=== PATIENT | female | born 1950 | race Caucasian/White ===

== ENCOUNTER 2020-03-20 18:09 | Emergency (ER) | payer MEDICARE, OTHER, SELFPAY ==
--- NOTE | ~2020-03-20 | XR_ITS ---
EXAMINATION: XR abdomen/kub 1V EXAM DATE: 03/20/2020 20:26 INDICATION: Right mid ureteral stone. Bilateral nephrolithiasis. TECHNIQUE: Frontal projection(s) of the abdomen for interpretation. Correlation is made to abdomen pe lvis CT same date. FINDINGS: Right mid ureteral stone is identified, indicated. There are 2 large left kidney stones al so well-visualized. Stool overlies the right renal contour but possible identification of a single sm all right nephrolithiasis. Moderate amount of colonic stool and gas. Nonobstructive bowel gas pattern . Lung bases unremarkable. IMPRESSION: Right mid ureteral stone, nephrolithiasis identified. Reviewed, dictated and finalized at location A.
--- NOTE | ~2020-03-20 | CT_ITS ---
EXAMINATION: CT abdomen pelvis wo con EXAM DATE: 03/20/2020 20:16 INDICATION: Right-sided abdominal pain radiating to right flank. Nausea. TECHNIQUE: Spiral CT of the abdomen and pelvis was performed without contrast. Axial, coronal and sag ittal images were reviewed. The dose-length product (DLP) for this examination was 1271.77 mGy-cm. The exposure was tailored according to patient size (auto mA exposure control), and iterative reconst ruction (ASIR) was used as additional dose reduction technique. Comparison is made to prior examinati on from 04/18/2019. FINDINGS: There is a 10 mm right mid ureteral stone with moderate right-sided hydroureteronephrosis. Several additional punctate right calyceal stones. There are 2 large left renal stones, measuring up to 1.3 cm, and several punctate left stones as well which are nonobstructing. The uterus is not iden tified and has likely been surgically resected. The bladder is unremarkable. The liver, spleen, adr enal glands and pancreas are unremarkable. The gallbladder is distended but otherwise unremarkable. There is no biliary duct dilation. There is no retroperitoneal or pelvic lymphadenopathy. The appendix is normal. There is moderate-sized gastroesophageal hiatal hernia. There is mild scatte red colonic diverticulosis. There is no adjacent inflammatory change to suggest diverticulitis. No free intraperitoneal gas. The heart is normal in size. There are no pericardial or pleural effusio ns. The lung bases are unremarkable. There are no osteoblastic or osteolytic lesions identified. IMPRESSION: 1. Right mid ureteral 10 mm stone, moderate hydroureteronephrosis. 2. Bilateral nephrolithiasis, largest on the left. 3. Moderate gastroesophageal hiatal hernia. 4. Mild colonic diverticulosis. Reviewed, dictated and finalized at location A.
[2020-03-20 18:28] VITALS: BP 172/86; PULSE 80; RESP 20; TEMP 37.4; O2SAT 98
[2020-03-20 18:47] LABS: Basophils Percent Auto 0.3 % (0.2-1.2); Eosinophils Percent Auto 0.2 % (0-4.4); Hematocrit 39.9 % (37.0-47.0); Immature Granulocyte Absolute 0.04 K/mm3 (0.00-0.031); Immature Granulocyte Percent A 0.4 % (0-0.5); Lymphocytes Absolute Auto 2.43 K/mm3 (0.9-3.2); Mean Corpuscular HGB Conc 32.6 g/dl (32-36); Mean Corpuscular Hemoglobin 29.5 pg (26-34); Mean Corpuscular Volume 90.7 fl (80-100); Mean Platelet Volume 11.6 fl (7.4-10.4); Monocytes Absolute Auto 0.6 K/mm3 (0.1-0.6); Monocytes Percent Auto 5.7 % (2.6-8.5); Neutrophils Absolute Auto 7.5 K/mm3 (1.3-6.7); Neutrophils Percent Auto 70.4 % (45.5-73.1); Platelet Count Result 210 k/mm3 (150-375); Red Cell Distribution Width 13.4 % (11.5-14.5); White Blood Count 10.6 K/mm3 (4.5-10.0)
[2020-03-20 18:51] LABS: Add Urine Microscopic? YES; Appearance Urine Clear (Clear); Bacteria Urine Trace /hpf; Bilirubin Urine Negative (Negative); Blood Urine 3+ (Negative); Color Urine Yellow (Yellow); Glucose Urine UA Negative (Negative); Ketones Urine Negative (Negative); Leukocyte Esterase Ur 2+ LEU/UL (Negative); Mucus Urine Rare /lpf; Nitrate Urine Negative (Negative); Protein Urine 1+ mg/dL (Negative); RBC Urine 51-75 /hpf (0-2); Specific Grav Ur 1.021 (1.001-1.035); Squamous Epithelial Cell Urine Occasional /hpf (Few); WBC Urine 21-30 /hpf
[2020-03-20 18:58] LABS: Alanine Aminotransferase 14 U/L (4-35); Albumin Level 4.8 g/dL (3.5-5.1); Alkaline Phosphatase 77 U/L (38-126); Aspartate Amino Transferase 25 U/L (14-36); Bilirubin,Total 0.5 mg/dL (0.2-1.3); Blood Urea Nitrogen 22 mg/dL (7-17); Calcium 10.1 mg/dL (8.4-10.2); Carbon Dioxide 22 mmol/L (22-30); Chloride 108 mmol/L (98-107); Estimated CRCL calculation 43 ml/min; Estimated Glomerular Filt Rate 37; Glucose 126 mg/dL (65-105); Lipase 123 U/L (23-300); Potassium 4.1 mmol/L (3.4-5.0); Sodium 140 mmol/L (137-145)
--- NOTE | 2020-03-20 19:43 | ED.ABDPAIN ---
HPI - Abdominal Pain General Chief Complaint: Abdominal Pain <Cedrick Casanova PA-C - Last Filed: 03/20/20 20:58> Stated Complaint: RLQ ABD PAIN <EDITA Anderson Last Filed: 03/20/20 20:58> Time Seen by Provider: 03/20/20 19:17 <EDITA Anderson Last Filed: 03/20/20 20:58> Source: patient <EDITA Anderson Last Filed: 03/20/20 20:58> Mode of arrival: ambulatory <Cedrick Casanova PA-C - Last Filed: 03/20/20 20:58> Limitations: no limitations <Cedrick Casanova PA-C - Last Filed: 03/20/20 20:58> History of Present Illness HPI narrative: Patient is a 70-year-old female who presents to emergency department for evaluation of right lower quadrant pain flank pain that began today around noon described as a constant aching pain attempted [id number] medications with no improvement patient on arrival is in no distress notes that she did have some dry heaving patient denies any change in bowel habits fever or chills or other complaints and is otherwise resting comfortably on arrival is noted patient denies similar occurrence in the past has not been seen for this complaint <Cedrick Casanova PA-C - Last Filed: 03/20/20 20:58> Related Data Allergies/Adverse Reactions: Allergies Allergy/AdvReac Type Severity Reaction Status Date / Time No Known Allergies Allergy Verified 06/08/14 10:54 <EDITA Anderson Last Filed: 03/20/20 20:58> Review of Systems Review of Systems: All systems reviewed & are unremarkable except as noted in HPI and below <Cedrick Casanova PA-C - Last Filed: 03/20/20 20:58> [facility] Past Medical History Medical History: Medical History (Updated 03/20/20 @ 20:34 by Mayela Montaño MD) Hyperlipidemia Obesity <EDITA Anderson Last Filed: 03/20/20 20:58> Surgical History Surgical History: Surgical History H/O: hysterectomy <EDITA Anderson Last Filed: 03/20/20 20:58> Family History Family History: Family History (Updated 05/09/16 @ 23:19 by DOCTOR UNKNOWN) Grandparent Family history of malignant neoplasm of breast Sibling Family history of obesity Hypertension Family history of alcoholism Mother Family history of cataracts <Cedrick Casanova PA-C - Last Filed: 03/20/20 20:58> Social History Social History: Social History Smoking status: Never smoker Second hand tobacco smoke exposure: No Alcohol intake: never <Cedrick Casanova PA-C - Last Filed: 03/20/20 20:58> Exam Narrative: Exam Narrative: GENERAL: Well-appearing, obese, and in no acute distress. HEAD: Normocephalic, atraumatic. EYES: PERRLA and EOMI. ENT: Nares clear, no rhinorrhea or epistaxis. Mucous membranes moist. CHEST: Clear to auscultation. No respiratory distress. No wheezes rales or rhonchi HEART: Regular rate and rhythm. No murmur heard. Normal peripheral pulses. ABDOMEN: Soft, right lower quadrant tenderness to palpation, nondistended EXTREMITIES: Normal range of motion. No edema. SKIN: Warm, dry, no rash. NEURO: No focal deficits. Alert and oriented x3. Cranial nerves II through XII grossly intact PSYCH: Normal mood and affect. <Cedrick Casanova PA-C - Last Filed: 03/20/20 20:58> Course Course Emergency Course: Patient in the room in no distress aware of case findings treatment plan and diagnosis agreeing to follow-up as directed aware of recommendations with urology <Cedrick Casanova PA-C - Last Filed: 03/20/20 20:58> Consultations Consultation #1: Discussed case with urologist who will follow patient by phone tomorrow to set up for lithotripsy <Cedrick Casanova PA-C - Last Filed: 03/20/20 20:58> Date: 03/20/20 <Cedrick Casanova PA-C - Last Filed: 03/20/20 20:58> Time: 20:57 <EDITA Anderson Last Filed: 03/20/20 20:58> Vital S
[2020-03-20 19:44] VITALS: BP 157/88; PULSE 63; RESP 20; O2SAT 99
[2020-03-20] MEDS: FAMOTIDINE 20 MG/2 ML VIAL IV PUSH (19:48)
[2020-03-20] MEDS: ONDANSETRON INJ 4 MG/2 ML VIAL IV PUSH (19:49)
[2020-03-20 21:50] VITALS: BP 136/75; PULSE 62; RESP 16; O2SAT 99
== END 2020-03-20 21:35 | disposition home or self-care (01) ==
PROVIDERS: Emergency Medicine; Emergency Provider Emergency Medicine; PCP Family Medicine
DX: N13.2 Hydronephrosis with renal and ureteral calculous obstruction (principal); E78.5 Hyperlipidemia, unspecified; E66.9 Obesity, unspecified; Z68.38 Body mass index [BMI] 38.0-38.9, adult; K44.9 Diaphragmatic hernia without obstruction or gangrene; K57.90 Diverticulosis of intestine, part unspecified, without perforation or abscess without bleeding
CPT/HCPCS: 36415; 74018; 74176; 80053; 81001; 81025; 83690; 85025; 87086; 87088; 96365; 96375; 99284; J0131; J0696; J2405

== ENCOUNTER 2020-04-24 09:26 | Outpatient (CLI) | payer MEDICARE, OTHER, SELFPAY ==
--- NOTE | ~2020-04-24 | XR_ITS ---
XR abdomen/kub 1V 04/24/2020 09:52 Indication: Right ureteral stone. Procedure: KUB Comparison: 03/20/2020 Findings: Stable large left renal stones. No definite ureteral stone identified on current study. Non obstructive bowel gas pattern. No acute osseous abnormality. Impression: 1: Left nephrolithiasis. Reviewed, dictated and finalized at location B. Impression: 1: Left nephrolithiasis.
== END 2020-04-24 09:27 | disposition home or self-care (01) ==
LOC: ANHIMG 09:33
PROVIDERS: PCP Family Medicine; Visit Provider Urology
DX: N20.0 Calculus of kidney (principal)
CPT/HCPCS: 74018

== ENCOUNTER 2020-05-10 06:49 | Outpatient (CLI) | payer MEDICARE, OTHER, SELFPAY ==
[2020-05-10 08:01] LABS: Alanine Aminotransferase 16 U/L (4-35); Albumin Level 4.6 g/dL (3.5-5.1); Alkaline Phosphatase 64 U/L (38-126); Aspartate Amino Transferase 26 U/L (14-36); Bilirubin,Total 0.7 mg/dL (0.2-1.3); Blood Urea Nitrogen 21 mg/dL (7-17); Calcium 9.3 mg/dL (8.4-10.2); Carbon Dioxide 25 mmol/L (22-30); Chloride 105 mmol/L (98-107); Cholesterol 124 mg/dL (0-200); Estimated Glomerular Filt Rate > 60; Glucose 98 mg/dL (65-105); HDL Direct 48 mg/dL; Sodium 139 mmol/L (137-145); Triglycerides 96 mg/dL (<150)
[2020-05-10 08:11] LABS: LDL Cholesterol Direct 53 mg/dL
[2020-05-10 09:10] LABS: Free T4 Free Thyroxine 1.28 ng/mL (0.78-2.19)
== END 2020-05-10 06:50 | disposition home or self-care (01) ==
LOC: ANHLAB 06:52
PROVIDERS: PCP Family Medicine; Visit Provider Physician Assistant
DX: E05.90 Thyrotoxicosis, unspecified without thyrotoxic crisis or storm (principal); E78.5 Hyperlipidemia, unspecified
CPT/HCPCS: 36415; 80053; 80061; 84439; 84443

== ENCOUNTER 2020-08-23 13:45 | Outpatient (CLI) | payer MEDICARE, OTHER, SELFPAY ==
--- NOTE | ~2020-08-23 | US_ITS ---
EXAMINATION: US venous doppler LE RT EXAM DATE: 08/23/2020 14:30 INDICATION: Z86.718 - Personal history of other venous thrombosis and embolism CALF PAIN . TECHNIQUE: Multiple grayscale, color flow and Doppler images of the right lower extremity deep venous system were obtained and reviewed. Comparison is made to prior examination from 12/12/2014. FINDINGS: There is linear defect consistent with web/scarring extending longitudinally along the femo ral vein causing partial noncompressibility. Appearance is consistent with chronic sequela from prior DVT, and appears unchanged compared to 2015 study. Previously seen popliteal and peroneal veins have reconstituted fully. The right common femoral and profunda veins demonstrate normal color flow, respiratory variation, aug mentation and compressibility. Compressibility, color flow confirmed within the right popliteal, pos terior tibial, peroneal, and greater saphenous veins. IMPRESSION: 1. Chronic right femoral web/scarring. 2. No treatable DVT suspected. 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
== END 2020-08-23 13:46 | disposition home or self-care (01) ==
PROVIDERS: PCP Family Medicine; Visit Provider Physician Assistant
DX: M79.661 Pain in right lower leg (principal); Z86.718 Personal history of other venous thrombosis and embolism
CPT/HCPCS: 93971

== ENCOUNTER → 2020-10-31 15:36 | Outpatient (CLI) | payer MEDICARE, OTHER, SELFPAY ==
--- NOTE | ~2020-10-31 | XR_ITS ---
EXAMINATION: XR knee RT 2V DATE: 10/31/2020 15:46 INDICATION: Right knee pain. TECHNIQUE: 2 views of right knee were obtained. COMPARISON: Right knee radiographs 12/01/2017 FINDINGS: Bone alignment is normal. No fracture. There is mild osteoarthritis of medial and patellofe moral compartments and moderate osteoarthritis of lateral compartment. There is a small knee joint ef fusion. IMPRESSION: 1. Moderate right knee osteoarthritis. 2. Small right knee joint effusion. Reviewed, dictated and finalized at location B. 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
== END ==
PROVIDERS: PCP Family Medicine; Visit Provider Nurse Practitioner Adult Health
DX: M17.11 Unilateral primary osteoarthritis, right knee (principal); M25.461 Effusion, right knee
CPT/HCPCS: 73560

== ENCOUNTER → 2020-11-02 11:53 | Outpatient (CLI) | payer MEDICARE, OTHER, SELFPAY ==
--- NOTE | ~2020-11-02 | MR_ITS ---
EXAMINATION: MR knee RT wo con DATE: 11/02/2020 12:29 INDICATION: Right knee pain TECHNIQUE: Magnetic resonance imaging (MRI) of the right knee was performed without intravenous contr ast. Sequences included coronal PD-weighted FSE, coronal PD-weighted FS FSE, sagittal T2-weighted FS E, sagittal PD-weighted FS FSE and axial PD weighted fat saturated FSE. COMPARISON: None. FINDINGS: Medial compartment: Complex tear of the body and posterior horn of the medial meniscus which includes both a . Peak confi guration tear at the posterior horn and the longitudinal horizontal tear extending to the inferior ar ticular surface of both the body and posterior horn. There is partial thickness cartilage loss along the medial tibial plateau with relatively smooth chondral surface and without degenerative subchondra l changes. More irregular partial-thickness chondral ulceration along the anterior weightbearing medi al femoral condyle also without degenerative subchondral changes. Lateral compartment: Complex tear likely secondary degeneration of the body of the lateral meniscus which demonstrates a s omewhat globular morphology with more amorphous increased signal contacting extensive portions of the cephalad and caudal articular surfaces. Partial-thickness cartilage loss at the lateral tibial plate au which appears to involve greater than 50% the cartilage thickness centrally but with smooth chondr al surface. Additional partial thickness cartilage loss of greater than 50% thickness with smooth sophie face at the central weightbearing lateral femoral condyle. Patellofemoral compartment: Extensive partial thickness cartilage loss throughout the patella with chondral surface regularity. F ocal full thickness chondral ulceration with cortical irregularity and subarticular edema at the supe romedial aspect of the lateral facet near the apical ridge. Partial-thickness chondral ulceration kamaljit ng the inferior aspect of the medial trochlea. Ligaments and tendons: Anterior and posterior cruciate ligaments are normal. The medial collateral ligament and fibular marisa ateral ligament complex are normal. The extensor mechanism is normal. The visualized medial and later al hamstring tendons as well as the iliotibial band are normal. Fluid: Minimal right knee joint effusion at the lateral gutter of the suprapatellar pouch. No loose osteocho ndral bodies identified. Osseous/other: Normal marrow signal aside from the previous noted foci of degenerative subarticular edema. No fractu re or pathologic marrow replacing process. There is prominent fatty atrophy of the soleus muscle and medial head of the gastrocnemius muscle. IMPRESSION: 1. Complex medial and lateral meniscal tears. Line 2. Mild tricompartmental osteoarthritis with high-grade patellofemoral and moderate grade medial and lateral compartment chondromalacia. 3. Fatty atrophy of the soleus muscle and medial head of the gastrocnemius muscle which is of indeter minate etiology. Reviewed, dictated and finalized at location A. 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 Complex medial and lateral meniscal tears. Line 2. Mild tricompartmental osteoarthritis with high-grade patellofemoral and mode rate grade medial and lateral compartment chondromalacia. 3. Fatty atrophy of the soleus muscle and medial head of the gastrocnemius musc le which is of indeterminate etiology.
== END ==
PROVIDERS: Visit Provider Nurse Practitioner Adult Health
DX: M17.11 Unilateral primary osteoarthritis, right knee (principal); S83.231A Complex tear of medial meniscus, current injury, right knee, initial encounter; S83.271A Complex tear of lateral meniscus, current injury, right knee, initial encounter; X58.XXXA Exposure to other specified factors, initial encounter
CPT/HCPCS: 73721

== ENCOUNTER 2021-04-22 07:02 | Outpatient (CLI) | payer MEDICARE, SELFPAY ==
[2021-04-22 08:13] LABS: Alanine Aminotransferase 13 U/L (4-35); Albumin Level 4.3 g/dL (3.5-5.1); Alkaline Phosphatase 78 U/L (38-126); Anion Gap 8 mmol/L (8-16); Aspartate Amino Transferase 23 U/L (14-36); Bilirubin,Total 0.7 mg/dL (0.2-1.3); Blood Urea Nitrogen 18 mg/dL (7-17); Calcium 9.4 mg/dL (8.4-10.2); Carbon Dioxide 25 mmol/L (22-30); Chloride 109 mmol/L (98-107); Cholesterol 202 mg/dL (0-200); Estimated Glomerular Filt Rate 55; Glucose 99 mg/dL (65-105); HDL Direct 44 mg/dL; Potassium 4.1 mmol/L (3.4-5.0); Sodium 142 mmol/L (137-145); Triglycerides 136 mg/dL (<150)
[2021-04-22 08:24] LABS: LDL Cholesterol Direct 109 mg/dL
== END 2021-04-22 07:03 | disposition home or self-care (01) ==
PROVIDERS: PCP Family Medicine; Visit Provider Physician Assistant
DX: E78.5 Hyperlipidemia, unspecified (principal)
CPT/HCPCS: 36415; 80053; 80061

== ENCOUNTER 2021-06-14 03:22 | Day surgery (SDC) | payer MEDICARE, SELFPAY ==
[2021-06-14] VITALS (8 sets, daily range): BP systolic 112–156; BP diastolic 73–86; PULSE 67–73; RESP 14–20; TEMP 36.2–36.6; O2SAT 97–100; BMI 38.9
--- NOTE | ~2021-06-14 | XR_ITS ---
EXAMINATION: XR abdomen/kub 1V EXAM DATE: 06/14/2021 06:30 INDICATION: ESWL TECHNIQUE: Frontal projection of the upper abdomen, frontal projection lower abdomen/pelvis for inter pretation. Comparison is made to prior examination from 04/24/2020. FINDINGS: There is approximately 9 mm calcification projecting over the expected location of the lef t ureteropelvic junction, appears to have migrated from a superior calyx on prior study. There is drew roximately 1.5 cm calcification projecting over the lower pole of the left kidney. Nonobstructive bow el gas pattern. There are bony degenerative changes. IMPRESSION: Left UPJ, calyceal stones. Reviewed, dictated and finalized at location D. IMPRESSION: Left UPJ, calyceal stones.
--- NOTE | 2021-06-14 07:12 | P.PNAN_ITS ---
Anes - Initial Pre Proc Eval Procedure: Operation Date: 06/14/21 08:15 Proposed Procedures p Left Renal Extracorporeal Shock Wave Lithotripsy, possible stent placement(Left) - Ramon Leong MD Date/Time: 06/14/21 07:12 Surgeon: Ramon Leong MD Pre Op Diagnosis: kidney stone Patient Data Age: 71 Gender: F Height: Weight: Allergies Allergy/AdvReac Type Severity Reaction Status Date / Time No Known Allergies Allergy Verified 04/11/21 11:03 Home Medications Medication Instructions Recorded Confirmed Type acetaminophen 500 mg PO Q6H PRN #30 cap 03/20/20 06/14/21 Rx tramadol 50 mg PO PRN 06/14/21 06/14/21 History Patient hx anesthesia problems: none Family hx anesthesia problems: none PMFSH Past Medical History Medical History Hyperlipidemia Hyperthyroidism Obesity Surgical History Surgical History H/O: hysterectomy Family History Family History Grandparent Family history of malignant neoplasm of breast Sibling Family history of obesity Hypertension Family history of alcoholism Mother Family history of cataracts Social History Social History Second hand tobacco smoke exposure: No Alcohol intake: never Anes - Eval Final PreProcedure Day of Procedure 06/14/21 07:12 Patient weight: obese Heart: regular rate and rhythm Lungs: clear to auscultation and normal air movement Airway: Mallampati scale class II Neurological: alert and oriented Last oral intake: >/= 8 hours ASA classification: III Emergent: no Anesthetic plan: proceed Anesthesia type and monitoring: general LMA Informed Consent: The patient's anesthetic plan and its attendant risks and benefits were discussed with the patient/family/POA. Questions were solicited and answers provided to the satisfaction of the patient/family/POA.
[2021-06-14] MEDS: LACTATED RINGERS 1,000 ML 30 ML IV CONT ×2 (07:15→09:58)
[2021-06-14 07:46] LABS: Prothrombin Time 13.5 Seconds (11.1-14.7)
[2021-06-14 07:47] LABS: Partial Thromboplastin Time 24.2 SECONDS (22.3-36.8)
--- NOTE | 2021-06-14 07:57 | SUR.PREOP ---
0757 - u/a waved per dr. mittal. pt/ptt results noted
--- NOTE | 2021-06-14 08:18 | PM.IMHP ---
H&P: HPI History of Present Illness Date/Time: 06/14/21 08:18 Chief Complaint: 9 mm left UPJ calculus with hydronephrosis and renal colic Narrative: Pleasant 71-year-old female who presented with left renal colic and was found to have a 9 mm left UPJ calculus. She also has a 1.5 cm left lower pole stone. Patient presents today for cysto, left retrograde pyelogram, left ureteral stent placement with left ureteral ESWL Review of Systems Review of Systems: All systems reviewed & are unremarkable except as noted in HPI and below PMFSH Past Medical History Medical History Hyperlipidemia Hyperthyroidism Obesity Surgical History Surgical History H/O: hysterectomy Family History Family History Grandparent Family history of malignant neoplasm of breast Sibling Family history of obesity Hypertension Family history of alcoholism Mother Family history of cataracts Social History Social History Second hand tobacco smoke exposure: No Alcohol intake: never Meds Home Medications and Allergies Home Medications Medication Instructions Recorded Confirmed Type acetaminophen 500 mg PO Q6H PRN #30 cap 03/20/20 06/14/21 Rx tramadol 50 mg PO PRN 06/14/21 06/14/21 History Allergies Allergy/AdvReac Type Severity Reaction Status Date / Time No Known Allergies Allergy Verified 06/14/21 08:16 Vital Signs Vital Signs - 24 hr 06/14/21 07:16 Temperature 36.6 C Pulse Rate 72 Respiratory Rate 20 Blood Pressure 123/78 Pulse Oximetry 100 Exam Const: General: cooperative and uncomfortable HENMT: Head: normal to inspection Eyes: General: appearance normal, both eyes and all related structures Resp: Effort & Inspection: normal respiratory effort Cardio: Rate: regular rate Rhythm: regular rhythm : General: No CVA tenderness Back/Spine/Pelvis: Back: no CVA tenderness Assessment and Plan Assessment and plan (1) Obstruction of left ureteropelvic junction (UPJ) due to stone: Code(s): N20.1 - Calculus of ureter Status: Acute Assessment and Plan: Plan for cystoscopy, left retrograde pyelogram, left ureteral stent placement, ESWL left UPJ calculus
--- NOTE | 2021-06-14 08:21 | WPDHPUPDATE1 ---
History and Physical Update Update Date/Time: 06/14/21 08:21 History and Physical has been reviewed, including an updated exam of the patient. There are NO changes in the patient's condition. Risks, benefits, and alternatives have been discussed and questions answered. Patient agrees to proceed with procedure.
[2021-06-14] MEDS: ceFAZolin 2 GM/D5W 50 ML 2 GM/50 ML BAG IVPB (08:43)
--- NOTE | 2021-06-14 09:27 | W.PM.PROC2 ---
Procedure Note - Detailed Date of Procedure 06/14/21 Pre-op Diagnosis kidney stone Post-op Diagnosis same Procedure Performed Cystoscopy, left retrograde pyelogram, left ureteral stent placement 4.8 Slovenian contour, lithotripsy left UPJ calculus Surgeon Ramon Leong MD Anesthesia general Description of Procedure Patient is taken the operative suite correctly identified. Once anesthesia was obtained she was placed in a frog-leg position and prepped and draped usual sterile fashion. Flexible cystoscope was inserted into the urethra. There were no tumors noted. The left ureteral orifice was cannulated with a [place]. Pyelogram was performed to confirm placement of the stent in the renal pelvis. The stent was placed in left collecting system. A 4.8 Slovenian contour stent was then placed with the proximal end coiled in the renal pelvis and the distal end in the bladder. Patient was then repositioned. The stone was visualized in both planes. Two thousand five hundred shocks were given the stone. There appeared to good fragmentation. Patient is taken recovery stable condition. She will obtain a KUB in approximately 7-10 days. Drains Yes Packing No Pathology none sent Complications No immediate complications Condition stable Disposition PACU
== END 2021-06-14 11:05 | disposition home or self-care (01) ==
PROVIDERS: PCP Family Medicine; Visit Provider Urology
PROC: (CPT 50590; principal; 2021-06-14 08:15)
DX: N20.1 Calculus of ureter (principal); E78.5 Hyperlipidemia, unspecified; E05.90 Thyrotoxicosis, unspecified without thyrotoxic crisis or storm; E66.9 Obesity, unspecified; Z68.38 Body mass index [BMI] 38.0-38.9, adult
CPT/HCPCS: 52332; 50590; 36415; 74018; 85610; 85730; A9270; C1758; C1769; C2617; J0131; J0690; J1100; J2250; J2405; J2704; J3010; J7030; J7120; Q9966

== ENCOUNTER 2021-06-27 10:40 | Outpatient (CLI) | payer MEDICARE, SELFPAY ==
--- NOTE | ~2021-06-27 | XR_ITS ---
EXAMINATION: XR abdomen/kub 1V INDICATION: Ureterolithiasis TECHNIQUE: Supine views of the abdomen were obtained on 2 radiographs. COMPARISON: 06/14/2021 FINDINGS: A left internal ureteral stent has been placed which ends in expected position. A stone pre viously seen in the left renal pelvis is no longer identified. There are stone fragments projecting o dorie the sacrum adjacent to the internal ureteral stent which measure 6 mm and 7 mm. There is a stable 1.7 cm stone of the left kidney lower pole. The bowel gas pattern is normal. IMPRESSION: 1. Interval treatment of the previously described left renal pelvis stone with placement of a left in ternal ureteral stent in expected position and stone fragments adjacent to the midportion of the sten t. 2. Left nephrolithiasis. Reviewed, dictated and finalized at location A. IMPRESSION: 1. Interval treatment of the previously described left renal pelvis stone with placement of a left internal ureteral stent in expected position and stone frag ments adjacent to the midportion of the stent. 2. Left nephrolithiasis.
== END 2021-06-27 10:41 | disposition home or self-care (01) ==
LOC: ANHIMG 10:45
PROVIDERS: PCP Family Medicine; Visit Provider Nurse Practitioner Family
DX: N20.0 Calculus of kidney (principal)
CPT/HCPCS: 74018

== ENCOUNTER 2021-07-01 10:05 | Outpatient (CLI) | payer MEDICARE, SELFPAY ==
--- NOTE | ~2021-07-01 | XR_ITS ---
EXAMINATION: XR abdomen/kub 1V DATE: 07/01/2021 10:26 INDICATION: Left kidney stone. TECHNIQUE: A supine view of the abdomen on 2 radiographs was obtained. COMPARISON: CT abdomen and pelvis 03/20/2020 FINDINGS: There are no dilated loops of bowel. There is a left internal ureteral stent in expected po sition. Right kidney is obscured by bowel. There are 3 mm and 15 mm stones in left kidney. There are least 3 stones in left ureter overlying the sacrum measuring up to 6 mm. IMPRESSION: 1. Stones in left kidney and left ureter with left internal ureteral stent in expected position. Reviewed, dictated and finalized at location A. IMPRESSION: 1. Stones in left kidney and left ureter with left internal ureteral stent in e xpected position.
== END 2021-07-01 10:06 | disposition home or self-care (01) ==
LOC: ANHIMG 10:08
PROVIDERS: PCP Family Medicine; Visit Provider Urology
DX: N20.2 Calculus of kidney with calculus of ureter (principal)
CPT/HCPCS: 74018

== ENCOUNTER 2021-07-09 02:00 | Day surgery (SDC) | payer MEDICARE, SELFPAY ==
[2021-07-08 15:27] VITALS: BMI 38.9
[2021-07-09] VITALS (8 sets, daily range): BP systolic 123–167; BP diastolic 52–90; PULSE 71–87; RESP 14–18; TEMP 36.6; O2SAT 95–100
--- NOTE | ~2021-07-09 | XR_ITS ---
EXAMINATION: XR retrograde pyelo w/stent LT DATE: 07/09/2021 13:47 INDICATION: Left ureteral stent exchange TECHNIQUE: 6 fluoroscopic spot images of the abdomen and pelvis were obtained during procedure perfor med by Dr. Leong. Radiologist was not present for the imaging or procedure. The amount of fluorosc opy time used during this procedure was 1.1 minutes. COMPARISON: 07/01/2021 FINDINGS: Campus Manager images demonstrate a large stone at the lower pole of the left kidney as well as a left interna l ureteral stent which remains in expected position with loops formed over the region of the left venecia al pelvis and the bladder. There is some increased density projecting alongside the stent at the leve l of the caudal aspect of the left sacroiliac joint which could represent small stones in the ureter. Subsequent images demonstrate cannulation of the left ureter with retrograde contrast injection demo nstrating mild left hydronephrosis. Subsequent images demonstrate advancement of the catheter to the left renal pelvis with placement of a new left internal ureteral stent with loops formed over the exp ected location of the bladder and mid left renal pelvis. The densities previously seen near the level of the inferior left sacroiliac joint and along the visualized suggesting extraction ureteral stones . The large stone at the lower pole of the left kidney remains unchanged. IMPRESSION: 1. Fluoroscopy utilized during left internal ureteral stent exchange which remains in expected positi on. 2. Unchanged large stone at the lower pole of the left kidney. Small densities along the mid left ure teral stent on the interactive developer but not the final images suggesting ureteral stones with interval extraction . Correlate with operative note. Reviewed, dictated and finalized at location A. IMPRESSION: 1. Fluoroscopy utilized during left internal ureteral stent exchange which kyle ins in expected position. 2. Unchanged large stone at the lower pole of the left kidney. Small densities along the mid left ureteral stent on the interactive developer but not the final images suggest ing ureteral stones with interval extraction. Correlate with operative note.
[2021-07-09] MEDS: LACTATED RINGERS 1,000 ML 30 ML IV CONT ×2 (11:00→13:46)
--- NOTE | 2021-07-09 11:00 | WPDHPUPDATE1 ---
History and Physical Update Update Date/Time: 07/09/21 11:00 History and Physical has been reviewed, including an updated exam of the patient. There are NO changes in the patient's condition. Risks, benefits, and alternatives have been discussed and questions answered. Patient agrees to proceed with procedure.
[2021-07-09 12:07] LABS: Add Urine Microscopic? YES; Appearance Urine Cloudy (Clear); Bacteria Urine Trace /hpf; Bilirubin Urine Negative (Negative); Blood Urine 3+ (Negative); Color Urine Yellow (Yellow); Glucose Urine UA Negative (Negative); Ketones Urine Negative (Negative); Leukocyte Esterase Ur 3+ LEU/UL (Negative); Mucus Urine Few /lpf; Nitrate Urine Negative (Negative); Protein Urine 1+ mg/dL (Negative); RBC Urine >75 /hpf (0-2); Specific Grav Ur 1.016 (1.001-1.035); Squamous Epithelial Cell Urine Many /hpf (Few); Urobilinogen Urine Negative mg/dL (<2.0); WBC Urine 31-50 /hpf
--- NOTE | 2021-07-09 12:36 | WPDANESEPPF ---
Anes - Initial Pre Proc Eval Procedure: Operation Date: 07/09/21 12:30 Proposed Procedures p Cystoscopy, Left Ureteroscopy, Left Retrograde Pyelogram, Left Stone Extraction, Left Stent Exchange - Ramon Leong MD s Possible Holmium Laser Procedure - Ramon Leong MD Date/Time: 07/09/21 12:36 Surgeon: Ramon Leong MD Pre Op Diagnosis: left ureteral stone Patient Data Age: 71 Gender: F Height: 1.68 m Weight: 108.2 kg Last Vital Signs Temp 36.6 C 07/09/21 11:00 Pulse 87 07/09/21 11:00 Resp 15 07/09/21 11:00 BP 130/72 07/09/21 11:00 Pulse Ox 100 07/09/21 11:00 Allergies Allergy/AdvReac Type Severity Reaction Status Date / Time No Known Allergies Allergy Verified 07/09/21 11:56 Home Medications Medication Instructions Recorded Confirmed Type acetaminophen 500 mg PO Q6H PRN #30 cap 03/20/20 07/09/21 Rx hydrocodone-acetaminophen 1 tablet PO Q6H PRN #20 tablet 06/14/21 07/09/21 Rx tramadol 50 mg PO PRN 06/14/21 07/09/21 History Laboratory Tests 07/09/21 11:34 Urine Color Yellow (Yellow) Urine Appearance Cloudy H (Clear) Urine pH 6.0 (5.0-9.0) Ur Specific [place] 1.016 (1.001-1.035) Urine Protein 1+ mg/dL H mg/dL (Negative) Urine Glucose (UA) Negative mg/dL mg/dL (Negative) Urine Ketones Negative mg/dL mg/dL (Negative) Ur Blood (Man) 3+ H (Negative) Urine Nitrate Negative (Negative) Urine Bilirubin Negative (Negative) Urine Urobilinogen Negative mg/dL mg/dL (<2.0) Leukocyte Esterase Rfl 3+ [place]/UL H [place]/UL (Negative) Urine RBC >75 /hpf H /hpf (0-2) Urine WBC 31-50 /hpf H /hpf Ur Squamous Epith Cells Many /hpf H /hpf (Few) Urine Bacteria Trace /hpf /hpf Urine Mucus Few /lpf H /lpf Patient hx anesthesia problems: none Family hx anesthesia problems: none Results Review: All pre-operative results and documents have been reviewed as part of the pre-operative evaluation. PMFSH Past Medical History Medical History Hyperlipidemia Hyperthyroidism Obesity Surgical History Surgical History H/O: hysterectomy Family History Family History Grandparent Family history of malignant neoplasm of breast Sibling Family history of obesity Hypertension Family history of alcoholism Mother Family history of cataracts Social History Social History Smoking status: Never smoker Second hand tobacco smoke exposure: No Alcohol intake: never Substance use: never Substance use type: does not use Living arrangements: with family Additional living arrangements comments: LIVES WITH [facility] Spiritual care concerns: No Anes - Eval Final PreProcedure Day of Procedure 07/09/21 12:36 Patient weight: obese Heart: regular rate and rhythm Lungs: clear to auscultation Airway: Mallampati scale class II Neurological: alert and oriented Last oral intake: >/= 8 hours ASA classification: III Emergent: no Anesthetic plan: proceed Anesthesia type and monitoring: general LMA and standard monitoring Results Review: All pre-operative results and documents have been reviewed as part of the pre-operative evaluation. Informed Consent: The patient's anesthetic plan and its attendant risks and benefits were discussed with the patient/family/POA. Questions were solicited and answers provided to the satisfaction of the patient/family/POA.
[2021-07-09] MEDS: ceFAZolin 2 GM/D5W 50 ML 2 GM/50 ML BAG IVPB (12:56)
[2021-07-09] MEDS: LIDOCAINE HCL 2% GEL UROJET 10 ML PKG MUCOUS MEM (13:14)
--- NOTE | 2021-07-09 13:46 | W.PM.PROC2 ---
Procedure Note - Detailed Date of Procedure 07/09/21 Pre-op Diagnosis left ureteral stone Post-op Diagnosis same Procedure Performed Cystoscopy, left stent removal, left ureteroscopy with stone extraction x3 of left ureteral calculi, retrograde pyelogram, left stent placement 4.8 x 26 Marshallese Surgeon Ramon Leong MD Anesthesia general Description of Procedure Patient was taken to the operative suite and correctly identified. Once anesthesia was obtained she was placed in dorsal lithotomy position. Twenty-two Marshallese scope was inserted the bladder. The left ureteral stent was grasped brought out the meatus. Guidewire was passed through it. Rigid ureteral scope was inserted and the stone was visualized in the distal ureter. Using an escape basket we were able to retrieve it. She had another stone just proximal to this but we could not reach it with a rigid scope. The ureteral access sheath was then placed. Mini flexible ureteral scope was inserted. Retrieved a 2nd large stone with the escape basket. We then advanced the scope up into the kidney. No other ureteral stones were noted. The 3rd small stone was visualized and grasped. Pyelogram was performed. The stone appears to be in a lower pole calyx with a tight infundibulum. At this point procedure was terminated. 4.8 x 26 Marshallese stent was placed with the proximal end coiled in the renal pelvis and the distal in the bladder. 2% viscous lidocaine was inserted urethra. Patient is taken recovery stable condition. Will have the stent removed in approximately 7-10 days. Drains Yes Packing No Pathology yes Complications No immediate complications Condition stable Disposition PACU
[2021-07-09] MEDS: fentaNYL CITRATE INJ (*CRX) 100 MCG/2 ML VIAL 25 MCG IV PUSH (13:52)
[2021-07-09] MEDS: oxyCODONE HCL (*CRX) 5 MG TAB IR PO (14:53)
--- NOTE | 2021-07-09 17:10 | SUR.PHASEII ---
1520 DR. SMITH AWARE OF ELEVATED BLOOD PRESSURE; OKAY'D TO GO HOME.
== END 2021-07-09 15:40 | disposition home or self-care (01) ==
PROVIDERS: PCP Family Medicine; Visit Provider Urology
PROC: (CPT 52352; principal; 2021-07-09 12:30)
DX: N20.2 Calculus of kidney with calculus of ureter (principal); E78.5 Hyperlipidemia, unspecified; E05.90 Thyrotoxicosis, unspecified without thyrotoxic crisis or storm; E66.9 Obesity, unspecified; Z68.38 Body mass index [BMI] 38.0-38.9, adult
CPT/HCPCS: 52332; 52352; 74420; 81001; 82365; 87086; 87088; 88300; A9270; C1769; C1894; C2617; J0690; J1100; J2405; J2704; J3010; J7120; Q9966

== ENCOUNTER 2021-08-21 09:44 | Outpatient (CLI) | payer MEDICARE, SELFPAY ==
--- NOTE | ~2021-08-21 | XR_ITS ---
XR abdomen/kub 1V 08/21/2021 10:08 Indication: Left kidney stone Procedure: KUB Comparison: Comparison to multiple prior studies sequentially, with oldest reviewed study dated 04/24. Findings: There is a left renal stone at the lower pole measuring 1.9 cm. There is a small upper pole left renal stone. Bowel gas pattern is nonobstructive. Interval removal of left internal ureteral st ent. Lung bases are unremarkable. Impression: 1: Left nephrolithiasis. Reviewed, dictated and finalized at location A. ITURE ASSEMBLER AND INSTALLER Impression: 1: Left nephrolithiasis.
== END 2021-08-21 09:45 | disposition home or self-care (01) ==
LOC: ANHIMG 09:48
PROVIDERS: PCP Family Medicine; Visit Provider Urology
DX: N20.0 Calculus of kidney (principal)
CPT/HCPCS: 74018

== ENCOUNTER 2021-08-25 13:44 | Emergency (ER) | payer MEDICARE, SELFPAY ==
--- NOTE | ~2021-08-25 | CT_ITS ---
EXAMINATION: CT abdomen pelvis w con DATE: 08/25/2021 15:18 INDICATION: Low abdominal pain. Right flank pain. TECHNIQUE: Computed tomography (CT) of the abdomen and pelvis was performed with 100 mL Omnipaque 350 intravenous contrast. Automated exposure control and iterative reconstruction technique were employe d. The dose-length product was 1328.71 mGy-cm. COMPARISON: CT abdomen and pelvis 03/20/2020 FINDINGS: The visualized portions of the lung bases demonstrate mild atelectasis. No pleural effusion . The heart size is normal. No pericardial effusion. There is a moderate-sized sliding hiatal hernia. There is a 4 mm cyst in the liver. The gallbladder is distended. Calcifications in the spleen are co nsistent with old granulomatous disease. The pancreas and adrenal glands are normal. There is cortica l thinning of the kidneys. There are approximately 5 stones in left kidney measuring up to 16 mm. The re is diverticulosis of the colon without evidence of diverticulitis. The appendix is normal. There i s prominent fat in the left inguinal canal that may be a hernia. There is extensive thrombosis of sup erior mesenteric vein and its mesenteric vein tributaries with surrounding fat stranding, consistent with inflammation and edema. There are no pathologically enlarged lymph nodes. There is no free intra peritoneal fluid. There is moderate thoracic spondylosis and lumbar spondylosis. IMPRESSION: 1. 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 2. Moderate-sized sliding hiatal hernia. 3. Gallbladder distention, which may be secondary to fasting. If there is clinical concern for acute cholecystitis, consider ultrasound. Reviewed, dictated and finalized at location A. PRODUCT INSPECTOR IMPRESSION: 1. Extensive thrombosis involving superior mesenteric vein and its mesenteric v ein tributaries. 2. Moderate-sized sliding hiatal hernia. 3. Gallbladder distention, which may be secondary to fasting. If there is clini anahy concern for acute cholecystitis, consider ultrasound.
[2021-08-25 13:49] VITALS: BP 129/83; PULSE 98; RESP 18; TEMP 36.9; O2SAT 100
--- NOTE | 2021-08-25 14:34 | ED.ABDPAIN ---
HPI - Abdominal Pain General Chief Complaint: Abdominal Pain Stated Complaint: abd pain Time Seen by Provider: 08/25/21 14:11 Source: RN notes reviewed History of Present Illness HPI narrative: Patient presents emergency department from home for abdominal pain patient states symptoms began 6 days ago. Pain is located over the left side of the abdomen rates of the right flank described as sharp and stabbing. States is worse with eating. States she does have a history of kidney stones before in the past she denies any fevers or chills chest pain shortness of breath nausea vomiting diarrhea or any other symptoms. States she took Tylenol approximately 2 hours ago. States she is not needing pain medication at this time Related Data Allergies Allergy/AdvReac Type Severity Reaction Status Date / Time No Known Allergies Allergy Verified 08/25/21 14:28 Review of Systems Review of Systems: Gen.: Denies fevers or chills ENT: Denies congestion Respiratory: Denies shortness of breath or cough CV: Denies chest pain or palpitations GI: See HPI denies burning, urgency, frequency or hematuria Musculoskeletal: Denies back pain or muscle pain Neuro: Denies numbness, tingling, weakness or focal weakness Skin: Denies rash Except as documented, all other systems reviewed and negative PMFSH Past Medical History Medical History Hyperlipidemia Hyperthyroidism Obesity Surgical History Surgical History H/O: hysterectomy Family History Family History Grandparent Family history of malignant neoplasm of breast Sibling Family history of obesity Hypertension Family history of alcoholism Mother Family history of cataracts Social History Social History Smoking status: Never smoker Second hand tobacco smoke exposure: No Alcohol intake: never Substance use: never Substance use type: does not use Additional living arrangements comments: LIVES WITH SPOUSE BRIGHT Spiritual care concerns: No Exam Narrative: APPEARANCE: No acute distress, nontoxic, resting in bed HEENT: Normocephalic, atraumatic, OMM RESPIRATORY: No respiratory distress, clear to auscultation bilaterally with no rhonchi wheezing or rales CARDIOVASCULAR: RRR s murmur ABDOMINAL: Soft nondistended tender palpation right upper quadrant no tenderness right lower quadrant, left lower quadrant left upper quadrant no rebound or guarding MUSCULOSKELETAl: Moves all extremities. No clubbing, cyanosis or edema. NEURO: Awake and alert. Following commands, speech normal, no focal deficits SKIN:: Warm, dry. Normal Color PSYCHIATRIC: Normal affect/mood Course Course Emergency Course: Discussed with Dr. Salcedo for general surgery states this time he did recommend discussing with vascular surgery as patient may need more direct vascular intervention Discussed with patient need for transfer request [facility] at this time Discussed with Dr. Jaimes for vascular surgery at [facility] reviewed imaging at this time request patient started on heparin drip transfer to [facility] Patient accepted at [facility] emergency department by Dr. Krishnan Discussed with patient results and need for transfer all questions answered at this time after further discussion the patient does recall that she did have a blood clot in her right leg after a fall in 2017 for which he been on Xarelto for 8 months and then stopped Vital Signs Vital signs: Vital Signs Temperature 98.5 F 08/25/21 13:49 Pulse Rate 98 08/25/21 13:49 Respiratory Rate 18 08/25/21 13:49 Blood Pressure 129/83 08/25/21 13:49 Pulse Oximetry 100 08/25/21 13:49 Temperature 98.5 F 08/25/21 13:49 Pulse Rate 85 08/25/21 16:54 Respiratory Rate 18 08/25/21 16:54 Blood Pressure
[2021-08-25 14:41] LABS: Add Urine Microscopic? YES; Appearance Urine Cloudy (Clear); Bacteria Urine Trace /hpf; Bilirubin Urine 1+ (Negative); Blood Urine 1+ (Negative); Color Urine Amber (Yellow); Glucose Urine UA Negative (Negative); Ketones Urine Negative (Negative); Leukocyte Esterase Ur 3+ LEU/UL (Negative); Mucus Urine Moderate /lpf; Nitrate Urine Negative (Negative); Protein Urine 1+ mg/dL (Negative); RBC Urine 21-50 /hpf (0-2); Squamous Epithelial Cell Urine Many /hpf (Few); WBC Urine 31-50 /hpf
[2021-08-25 14:43] LABS: Alanine Aminotransferase 17 U/L (4-35); Albumin Level 4.6 g/dL (3.5-5.1); Alkaline Phosphatase 114 U/L (38-126); Anion Gap 13 mmol/L (8-16); Aspartate Amino Transferase 26 U/L (14-36); Basophils Absolute Auto 0.1 K/mm3 (0.0-0.1); Basophils Percent Auto 0.7 % (0.2-1.2); Bilirubin,Total 0.9 mg/dL (0.2-1.3); Blood Urea Nitrogen 20 mg/dL (7-17); Calcium 10.1 mg/dL (8.4-10.2); Carbon Dioxide 22 mmol/L (22-30); Chloride 108 mmol/L (98-107); Eosinophils Absolute Auto 0.3 K/mm3 (0-0.3); Eosinophils Percent Auto 3.1 % (0-4.4); Estimated CRCL calculation 58 ml/min; Estimated Glomerular Filt Rate 55; Glucose 115 mg/dL (65-110); Hematocrit 38.3 % (37.0-47.0); Hemoglobin 12.7 g/dL (12.0-15.0); Immature Granulocyte Absolute 0.04 K/mm3 (0.00-0.031); Immature Granulocyte Percent A 0.4 % (0-0.5); Lipase 72 U/L (23-300); Lymphocytes Percent Auto 28.7 % (18.3-44.2); Mean Corpuscular HGB Conc 33.2 g/dl (32-36); Mean Corpuscular Hemoglobin 30.6 pg (26-34); Mean Corpuscular Volume 92.3 fl (80-100); Mean Platelet Volume 11.4 fl (7.4-10.4); Monocytes Percent Auto 8.8 % (2.6-8.5); Neutrophils Absolute Auto 6.3 K/mm3 (1.3-6.7); Neutrophils Percent Auto 58.3 % (45.5-73.1); Platelet Count Result 269 k/mm3 (150-375); Red Blood Count 4.15 M/mm3 (4.2-5.4); Red Cell Distribution Width 12.5 % (11.5-14.5); Sodium 143 mmol/L (137-145); Specific Grav Ur 1.034 (1.001-1.035); White Blood Count 10.8 K/mm3 (4.5-10.0)
[2021-08-25 16:25] LABS: INR 1.1; Lactic Acid Reflex 0.8 mmol/L (0.7-2.1)
[2021-08-25 16:26] LABS: Partial Thromboplastin Time 28.5 SECONDS (22.3-36.8)
[2021-08-25] MEDS: HEPARIN SODIUM 5,000 UNITS/ML VIAL 6500 UNITS IV PUSH (16:49)
[2021-08-25] MEDS: HEPARIN SOD/D5W 100 UNITS/ML 25,000 UNITS/250 ML BAG 14 UNITS IV CONT (16:49)
[2021-08-25 16:54] VITALS: BP 126/87; PULSE 85; RESP 18; O2SAT 98
[2021-08-25 18:29] LABS: EDCOVIDSCREEN Negative (Negative)
[2021-08-25 19:17] VITALS: BP 127/83; PULSE 86; RESP 18; O2SAT 98
== END 2021-08-25 19:20 | disposition short-term general hospital (02) ==
PROVIDERS: Emergency Medicine; Emergency Provider Emergency Medicine; PCP Family Medicine
DX: K55.059 Acute (reversible) ischemia of intestine, part and extent unspecified (principal); N39.0 Urinary tract infection, site not specified; Z20.822 Contact with and (suspected) exposure to COVID-19; E78.5 Hyperlipidemia, unspecified; E05.90 Thyrotoxicosis, unspecified without thyrotoxic crisis or storm; E66.9 Obesity, unspecified; Z68.38 Body mass index [BMI] 38.0-38.9, adult
CPT/HCPCS: 36415; 74177; 80053; 81001; 83605; 83690; 85025; 85610; 85730; 87077; 87086; 87186; 87426; 96365; 96366; 96367; 96375; 99284; 99285; C9803; J0696; J1644; Q9967

== ENCOUNTER 2021-09-12 10:54 | Outpatient (CLI) | payer MEDICARE, SELFPAY | END 2021-09-12 10:55 | disposition home or self-care (01) | LOC: ANHAUDIO 10:55 | PROVIDERS: PCP Family Medicine; Visit Provider Otolaryngology | DX: H93.13 Tinnitus, bilateral (principal); H90.3 Sensorineural hearing loss, bilateral | CPT/HCPCS: 92557; 92567 ==

== ENCOUNTER 2021-11-15 10:00 | Outpatient (RCR) | payer MEDICARE, SELFPAY | END 2021-11-15 23:59 | disposition home or self-care (01) | LOC: ANHAUDIO 10:00 | PROVIDERS: PCP Family Medicine; Visit Provider Family Medicine | DX: Z46.1 Encounter for fitting and adjustment of hearing aid (principal) | CPT/HCPCS: 99199; V5261 ==

== ENCOUNTER 2022-03-11 08:46 | Outpatient (CLI) | payer MEDICARE, SELFPAY ==
--- NOTE | ~2022-03-11 | XR_ITS ---
XR abdomen/kub 1V 03/11/2022 09:01 Indication: Renal stone Procedure: KUB Comparison: Comparison to multiple prior studies sequentially, with oldest reviewed study dated 12/2020. Findings: There are left renal stones, largest in the lower pole measuring 2 cm. Bowel gas pattern is nonobstructive. There is a left pelvic phlebolith. No acute osseous abnormality. Impression: 1: Left nephrolithiasis. Reviewed, dictated and finalized at location A. Impression: 1: Left nephrolithiasis.
== END 2022-03-11 08:47 | disposition home or self-care (01) ==
LOC: ANHIMG 08:50
PROVIDERS: PCP Family Medicine; Visit Provider Urology
DX: N20.0 Calculus of kidney (principal)
CPT/HCPCS: 74018

== ENCOUNTER 2022-03-27 07:14 | Outpatient (CLI) | payer MEDICARE, SELFPAY ==
[2022-03-27 07:42] LABS: Alanine Aminotransferase 13 U/L (6-35); Albumin Level 4.2 g/dL (3.5-5.1); Alkaline Phosphatase 77 U/L (38-126); Anion Gap 4 mmol/L (8-16); Aspartate Amino Transferase 21 U/L (14-36); Bilirubin,Total 0.6 mg/dL (0.2-1.3); Blood Urea Nitrogen 18 mg/dL (7-17); Calcium 8.9 mg/dL (8.4-10.2); Carbon Dioxide 27 mmol/L (22-30); Chloride 108 mmol/L (98-107); Cholesterol 194 mg/dL (0-200); Estimated Glomerular Filt Rate 49; Glucose 104 mg/dL (65-110); HDL Direct 37 mg/dL; Sodium 139 mmol/L (137-145); Triglycerides 120 mg/dL (<150)
[2022-03-27 07:52] LABS: LDL Cholesterol Direct 107 mg/dL
== END 2022-03-27 07:15 | disposition home or self-care (01) ==
PROVIDERS: PCP Family Medicine; Visit Provider Physician Assistant
DX: Z13.1 Encounter for screening for diabetes mellitus (principal); E78.5 Hyperlipidemia, unspecified; Z13.220 Encounter for screening for lipoid disorders
CPT/HCPCS: 36415; 80053; 80061

== ENCOUNTER → 2022-07-02 15:44 | Outpatient (CLI) | payer MEDICARE, SELFPAY ==
--- NOTE | ~2022-07-02 | DEXA_ITS ---
Bone Density Report Name: ROBEL PHAN Age: 72 Sex: Female Ethnicity: White Date of : 1950 Indication: postmenopausal; screening for osteoporosis; hysterectomy; Referring Provider: Meagan Miller Study: Bone densitometry was performed. Exam Date: July 02, 2022 Accession number: [id number] Bone Density: Region BMD T-score Z-score Classification AP Spine (L1-L4) 0.914 -1.2 0.9 Osteopenia Femoral Neck (Left) 0.721 -1.2 0.7 Osteopenia Total Hip (Left) 0.879 -0.5 1.0 Normal Femoral Neck (Right) 0.669 -1.6 0.2 Osteopenia Total Hip (Right) 0.841 -0.8 0.7 Normal Total Hip Mean 0.860 -0.7 0.9 Normal World Health Organization criteria for BMD impression classify patients as: Normal (T-score at or above -1.0), Osteopenia (T-score between -1.0 and -2.5), or Osteoporosis (T-score at or below -2.5). 10-year Fracture Risk(1): Major Osteoporotic Fracture 9.4% Hip Fracture 1.4% Reported Risk Factors: [place] (), Neck BMD=0.669, BMI=37.4 (1) FRAX(R) Version 3.08. Fracture probability calculated for an untreated patient. Fracture probability may be lower if the patient has received treatment. Clinical Information Provided by Patient: Has the following medical conditions: Hysterectomy Patient maximum height was 66.0 Menopause Age: 54 No regular weight bearing exercise Does not regularly consume dairy products Drinks caffeinated beverages Onset of menses at age 16 Number of children 2 Impression: The patient has low bone mass, based on the Right Femoral Neck T-score. The patient has an estimated ten-year risk of hip fracture of 1.4% and an estimated ten-year risk of major fracture of 9.4%, based on the WHO FRAX algorithm. Discussion: BONE DENSITY IS LOW AT ONE OR MORE SKELETAL SITES. This patient's lowest T-score is low at one or more skeletal sites. It meets the World Health Organization's (WHO) criteria for ?low bone mass? (T-score between -1.0 and -2.5). The patient's 10-year risk of fracture as calculated by FRAX is less than the threshold where pharmacological therapy is recommended by the National Osteoporosis Foundation (NOF). However, all treatment decisions require clinical judgment and consideration of individual patient factors, including patient preferences, comorbidities, previous drug use, risk factors not captured in the FRAX model (e.g., frailty, falls, vitamin D deficiency, increased bone turnover, interval significant decline in bone density) and possible under or overestimation of fracture risk by FRAX. The patient should follow a healthful lifestyle (good nutrition with adequate calcium and vitamin D, and appropriate weight-bearing exercise). Follow-Up: Consider repeating this study in 2 to 3 years to reassess this patient's status, or sooner if there is some new
--- NOTE | ~2022-07-02 | MM_ITS ---
EXAMINATION: MM screening [facility] BI w luis HISTORY: Screening mammogram, family history of breast cancer in her sister. TECHNIQUE: Craniocaudal and mediolateral oblique 3-D tomosynthesis images were obtained and synthetic 2-D images were generated. CAD analysis was submitted and interpreted. COMPARISON: 11/12/2018, 08/25/2017, 02/14/2015 BREAST PARENCHYMAL COMPOSITION: There are scattered areas of fibroglandular density. FINDINGS: There is no suspicious mass, calcification, or architectural distortion to suggest malignan cy in either breast. There has been no suspicious interval change. IMPRESSION: 1. No mammographic evidence of malignancy. 2. Recommend routine screening mammography in one year. BI-RADS Category 1: Negative Reviewed, dictated and finalized at location A.
== END ==
PROVIDERS: PCP Physician Assistant; Visit Provider Physician Assistant
DX: Z12.31 Encounter for screening mammogram for malignant neoplasm of breast (principal); Z78.0 Asymptomatic menopausal state; M85.89 Other specified disorders of bone density and structure, multiple sites
CPT/HCPCS: 77063; 77067; 77080

== ENCOUNTER 2023-03-26 07:11 | Outpatient (CLI) | payer MEDICARE, SELFPAY ==
[2023-03-26 07:48] LABS: Alanine Aminotransferase 18 U/L (6-35); Albumin Level 4.3 g/dL (3.5-5.1); Alkaline Phosphatase 66 U/L (38-126); Anion Gap 7 mmol/L (8-16); Aspartate Amino Transferase 28 U/L (14-36); Bilirubin,Total 0.8 mg/dL (0.2-1.3); Blood Urea Nitrogen 23 mg/dL (7-17); Carbon Dioxide 26 mmol/L (22-30); Chloride 106 mmol/L (98-107); Cholesterol 191 mg/dL (0-200); Estimated Glomerular Filt Rate 44; Glucose 104 mg/dL (65-110); HDL Direct 44 mg/dL; Potassium 4.1 mmol/L (3.4-5.0); Sodium 139 mmol/L (137-145); Triglycerides 120 mg/dL (<150)
[2023-03-26 07:58] LABS: LDL Cholesterol Direct 115 mg/dL
== END 2023-03-26 07:12 | disposition home or self-care (01) ==
PROVIDERS: PCP Family Medicine; Visit Provider Physician Assistant
DX: Z13.1 Encounter for screening for diabetes mellitus (principal); E78.5 Hyperlipidemia, unspecified; Z13.220 Encounter for screening for lipoid disorders
CPT/HCPCS: 36415; 80053; 80061

== ENCOUNTER 2024-04-06 16:11 | Outpatient (CLI) | payer MEDICARE, SELFPAY ==
--- NOTE | ~2024-04-06 | XR_ITS ---
EXAM: XR_CERV2-3V_CR DATE: 04/06/2024 16:30 HISTORY: M54.9 - Dorsalgia, unspecified . COMPARISON: None available. FINDINGS: Craniocervical association and atlantoaxial joint are aligned. Mild degenerative change at the atlantodental interval. No prevertebral soft tissue swelling. Minimal, 1 mm anterolisthesis at C 3-4. 2 mm anterolisthesis at C4-5. Vertebral body heights are maintained. Normal disc spaces. Disc sp mandy narrowing and marginal osteophytosis in the lower cervical spine. Multilevel moderate facet scler osis and hypertrophy. 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 Multilevel moderate facet arthropathy. Reviewed, dictated and finalized at location K. IMPRESSION: Grade 1 anterolistheses at C3-4 and C4-5 Moderate lower cervical sp ine degenerative disc disease. Multilevel moderate facet arthropathy.
--- NOTE | ~2024-04-06 | XR_ITS ---
EXAM: XR thoracic spine 2V DATE: 04/06/2024 16:30 HISTORY: M54.9 - Dorsalgia, unspecified . COMPARISON: X-ray chest 12/28/2014. FINDINGS: Mild spinal asymmetry. Exaggerated thoracic kyphosis. Vertebral body alignment intact. Vert ebral body heights preserved. Multilevel moderate disc space narrowing and marginal osteophytosis. No traumatic malalignment or fracture. Visualized lung parenchyma is clear. IMPRESSION: Multilevel moderate thoracic spine degenerative disc disease.. Reviewed, dictated and finalized at location K.
== END 2024-04-06 16:12 | disposition home or self-care (01) ==
LOC: ANHIMG 16:13
PROVIDERS: PCP Family Medicine; Visit Provider Student in an Organized Health Care Education/Training Program
DX: M50.30 Other cervical disc degeneration, unspecified cervical region (principal); M51.34 Other intervertebral disc degeneration, thoracic region
CPT/HCPCS: 72040; 72070

== ENCOUNTER 2025-08-18 07:42 | Outpatient (CLI) | payer MEDICARE, SELFPAY ==
--- OUTSIDE RECORDS SUMMARY | 2025-08-18 07:46 | XMS_ITS | Clinical Summary ---
Author Organization [facility] Address [address] [address] Care Team Providers Care Strike Off Machine Operator Name Role Phone Guy Sims MD Primary Care Provider [phone] Source Comments [facility],non[facility] Affiliates and Associated Physician Practices is amultiple site organization consisting of ambulatory clinics and hospital sitesin [place], [place], [place] and [place]. This disclosure is being madepursuant to the Care Everywhere program and may not contain all information available regarding this patient. 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 Gender Identity Not on file Sexual Orientation Not on file Plan of Treatment Health Maintenance Due Date Last Done Comments BONE DENSITY TESTING 1950 COLOGUARD (AGES 45-75) - COL ON CA SCREENING 1950 COLON MONITORING 1950 COLONOSCOPY - COLON CA SCREENING 1950 CT COLONOGRAPHY - COLON CA SCREENING 1950 Colorectal Cancer Screening 1950 FIT - COLON CA SCREENING 1950 FLEX SIG - COLON CA SCREENING 1950 LIPID TESTING 1950 MAMMOGRAM 1950 HEPATITIS C SCREENING 01/13/1970 DTAP/TDAP/TD VACCINES (1 - Tdap) 01/17/1971 PNEUMOCOCCAL VACCINE 50+ (1 of 1 - PCV) 01/17/2002 ZOSTER VACCINE (1 of 2) 01/17/2002 DEPRESSION SCREENING 10/12/2024 COVID-19 VACCINE (1 - 2023-2 5 season) 2025 INFLUENZA VACCINE (#1) 2025 Respiratory Syncytial Virus (RSV) Vaccine Pt: or over 60 yrs (1 - 1-dose 75+ series) 01/17/2027 HEPATITIS B VACCINE Aged Out No longe r eligible based on patient's age to complete this topic HIB VACCINE Aged Out No longer eligi ble based on patient's age to complete this topic HPV VACCINE Aged Out No longer eligi ble based on patient's age to complete this topic MENINGOCOCCAL (Group B) VACC INE SHARED DECISION-MAKING Aged Out No longer eligibl e based on patient's age to complete this topic MENINGOCOCCAL GROUPS A/C/Y/W VACCINE Aged Out No longer eligible b ased on patient's age to complete this topic Insurance MEDICARE AETNA Care Teams Strike Off Machine Operator Relationship Specialty Start Date End Date Guy Sims MD [address] [place] [id number] PCP - General 07/11/21
--- OUTSIDE RECORDS SUMMARY | 2025-08-18 07:46 | XMS_ITS | Encounter Summary ---
Author Organization [facility] Address [address] [place] [address] Phone Care Team Providers Care Non Licensed Nuclear Equipment Operator Name Role Phone Elaine Adams MD Primary Care Provider [phone] Encounter Details Date Type Department Care Team (Late st Contact Info) Description 08/15/2025 Orders Only [facility] Medicine Hematology [address] [place] [address] Provider, MD Brianna [address] [place] [address] Social History Tobacco Use Types Packs/Day Years Used Date Smoking Tobacco: Never Smokeless Tobacco: Never Alcohol Use Standard Drinks/Week Comments Yes 0 (1 standard drink = 0.6 oz pur e alcohol) AUDIT-C Answer Date Recorded Frequency of Alcohol Consumption Not on file 07/06/2024 Q2: How many drinks containi ng alcohol do you have on a typical day when you are drinking? Patient does not drink Frequency of Binge Drinking Not on file 06/13 Comments No Sex and Gender Information Value Date Recorded Sex Assigned at Not on file Legal Sex Female 2:56 AM CERTIFIED MASSAGE THERAPIST Gender Identity Not on file Sexual Orientation Not on file documented as of this encounter Plan of Treatment Not on file documented as of this encounter Procedures Procedure Name Priority Date/Time Associated Diagnosis Comments PROTIME-INR Routine 08/15/2025 9:20 AM CERTIFIED MASSAGE THERAPIST documented in this encounter Results * Protime-INR (08/15/2025 9:20 AM CERTIFIED MASSAGE THERAPIST) Blood us Historical Provider LAB BLOOD ORDERABLES Maki guzman Result EXTERNAL LAB documented in this encounter Visit Diagnoses Not on filedocumented in this encounter Additional Health Concerns Infection Onset Date Last Indicated Resolved Time 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
--- OUTSIDE RECORDS SUMMARY | 2025-08-18 07:46 | XMS_ITS | Clinical Summary ---
Author Organization [facility] Address [address] [place] [id number] Care Team Providers Care Senior Medical Billing Specialist Name Role Phone Elaine Adams MD Primary Care Provider [phone] Social History Tobacco Use Types Packs/Day Years Used Date Smoking Tobacco: Never Assessed Comments Unknown Sex and Gender Information Value Date Recorded Sex Assigned at Not on file Legal Sex Female 10:19 AM CDT Gender Identity Not on file Sexual Orientation Not on file Plan of Treatment Health Maintenance Due Date Last Done Comments Colorectal Cancer Screening Colonoscopy (10 Years) 1950 Hepatitis C 01/17/1970 DTaP, Tdap and Td Vaccines ( 1 - Tdap) 01/17/1971 Mammogram Screening 1992 Zoster Vaccines (1 of 2) 01/17/2002 Annual Medicare Wellness Visit 01/17/2017 Dexa Scan (General) 01/17/2017 Pneumococcal Vaccine: 50+ Years (2 of 2 - PCV20 or PCV21) 08/05/2020 08/05/2019 COVID-19 Vaccine (3 - 2024-2 6 season) 2025 12/18/2020, 11/20/2020 Influenza Adult (#1) 2025 07/17/2020 RSV Immunization or 60+ Years (1 - 1-dose 75+ series) 01/17/2027 Hepatitis A Vaccines Aged Out No long er eligible based on patient's age to complete this topic Meningococcal B Vaccine Aged Out No l onger eligible based on patient's age to complete this topic Meningococcal Vaccine Aged Out No fallon virgilio eligible based on patient's age to complete this topic RSV Immunizations Under 20 Months Aged Out No longer eligible b ased on patient's age to complete this topic Insurance MEDICARE AETNA Care Teams Senior Medical Billing Specialist Relationship Specialty Start Date End Date Elaine Adams MD [address] [place] [address] PCP - General FAMILY PRACTICE 06/13/21
--- OUTSIDE RECORDS SUMMARY | 2025-08-18 07:46 | XMS_ITS | Encounter Summary ---
Author Organization [facility] Address [address] [place] [address] Phone Care Team Providers Care Parts Sales Associate Name Role Phone Elaine Adams MD Primary Care Provider [phone] Nohelia Marks RN Unavailable Unavailable Encounter Details Date Type Department Care Team (Latest Contact Info) Description 02/10/2023 Orders Only [facility] Scanning, Provider Social History Tobacco Use Types Packs/Day Years Used Date Smoking Tobacco: Never Smokeless Tobacco: Never Alcohol Use Standard Drinks/Week Comments Yes 0 (1 standard drink = 0.6 oz pur e alcohol) Comments No Sex and Gender Information Value Date Recorded Sex Assigned at Not on file Legal Sex Female 2:56 AM MANAGER VALUATION Gender Identity Not on file Sexual Orientation Not on file documented as of this encounter Plan of Treatment Not on file documented as of this encounter Procedures Procedure Name Priority Date/Time Associated Diagnosis Comments SCAN - LABS 02/10/2023 documented in this encounter Results * SCAN - LABS (02/10/2023) us Provider Scanning Final Result documented in this encounter Visit Diagnoses Not on filedocumented in this encounter Additional Health Concerns Infection Onset Date Last Indicated Resolved Time 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
--- OUTSIDE RECORDS SUMMARY | 2025-08-18 07:46 | XMS_ITS | Encounter Summary ---
Author Organization [facility] Address [address] [place] [address] Phone Care Team Providers Care Cellars Supervisor Name Role Phone Elaine Adams MD Primary Care Provider [phone] Nohelia Marks RN Unavailable Unavailable Encounter Details Date Type Department Care Team (Latest Contact Info) Description 02/06/2022 Orders Only [facility] Scanning, Provider Social History Tobacco Use Types Packs/Day Years Used Date Smoking Tobacco: Never Smokeless Tobacco: Never Alcohol Use Standard Drinks/Week Comments Yes 0 (1 standard drink = 0.6 oz pur e alcohol) Comments No Sex and Gender Information Value Date Recorded Sex Assigned at Not on file 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 Gender Identity Not on file Sexual Orientation Not on file documented as of this encounter Plan of Treatment Not on file documented as of this encounter Procedures Procedure Name Priority Date/Time Associated Diagnosis Comments SCAN - LABS 02/06/2022 documented in this encounter Results * SCAN - LABS (02/06/2022) us Provider Scanning Edited Result - Final documented in this encounter Visit Diagnoses Not on filedocumented in this encounter Additional Health Concerns Infection Onset Date Last Indicated Resolved Time 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
--- OUTSIDE RECORDS SUMMARY | 2025-08-18 07:46 | XMS_ITS | Encounter Summary ---
Author Organization [facility] Address [address] [place] [address] Phone Care Team Providers Care Catapult And Arresting Gear Officer Name Role Phone Elaine Adams MD Primary Care Provider [phone] Nohelia Marks RN Unavailable Unavailable Encounter Details Date Type Department Care Team (Latest Contact Info) Description 05/04/2023 Orders Only [facility] Scanning, Provider Social History Tobacco Use Types Packs/Day Years Used Date Smoking Tobacco: Never Smokeless Tobacco: Never Alcohol Use Standard Drinks/Week Comments Yes 0 (1 standard drink = 0.6 oz pur e alcohol) AUDIT-C Answer Date Recorded Q1: How often do you have a drink containing alc ohol? 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 Gender Identity Not on file Sexual Orientation Not on file documented as of this encounter Plan of Treatment Not on file documented as of this encounter Procedures Procedure Name Priority Date/Time Associated Diagnosis Comments SCAN - LABS 05/04/2023 documented in this encounter Results * SCAN - LABS (05/04/2023) us Provider Scanning Final Result documented in this encounter Visit Diagnoses Not on filedocumented in this encounter Additional Health Concerns Infection Onset Date Last Indicated Resolved Time 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
--- OUTSIDE RECORDS SUMMARY | 2025-08-18 07:46 | XMS_ITS | Encounter Summary ---
Author Organization [facility] Address [address] [place] [address] Phone Care Team Providers Care Laborer Electroplating Name Role Phone Elaine Adams MD Primary Care Provider [phone] Nohelia Marks RN Unavailable Unavailable Encounter Details Date Type Department Care Team (Latest Contact Info) Description 09/05/2022 Orders Only [facility] Scanning, Provider Social History Tobacco Use Types Packs/Day Years Used Date Smoking Tobacco: Never Smokeless Tobacco: Never Alcohol Use Standard Drinks/Week Comments Yes 0 (1 standard drink = 0.6 oz pur e alcohol) Comments No Sex and Gender Information Value Date Recorded Sex Assigned at Not on file 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 Gender Identity Not on file Sexual Orientation Not on file documented as of this encounter Plan of Treatment Not on file documented as of this encounter Procedures Procedure Name Priority Date/Time Associated Diagnosis Comments SCAN - LABS 09/05/2022 documented in this encounter Results * SCAN - LABS (09/05/2022) us Provider Scanning Final Result documented in this encounter Visit Diagnoses Not on filedocumented in this encounter Additional Health Concerns Infection Onset Date Last Indicated Resolved Time 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
--- OUTSIDE RECORDS SUMMARY | 2025-08-18 07:46 | XMS_ITS | Clinical Summary ---
Author Organization [facility] Address [address] [place] [address] Care Team Providers Care Certified Tumor Registrar Name Role Phone Elaine Adams MD Primary Care Provider [phone] Allergies No known active allergies Medications acetaminophen 500 mg capsule Take 1 capsule (500 mg total) by mouth every 6 (six) hours as needed for pain 30 tablet 1 Active estradioL (ESTRACE) 0.01 % (0.1 mg/gram) vaginal creamIndication s:Frequent UTI Apply one (1) gram in the vagina two to three (2-3) nights per week. 42.5 g 3 4 Active warfarin (COUMADIN) 1 mg tablet Take 1 tablet (1 mg total) by mouth daily 60 tablet 2 4 Active warfarin (COUMADIN) 2 mg tabletIndicatio ns:Mesenteric vein thrombosis Take 2 tablets (4 mg total) by mouth daily 60 tablet 11 4 Active warfarin (COUMADIN) 1 mg tabletIndicatio ns:Mesenteric vein thrombosis TAKE 1 TABLET BY MOUTH ONCE DAILY DIRECTED BY COAGULATION CLINIC 30 tablet 11 5 Active tirzepatide 5 mg/0.2 mL syringe Inject under the skin Active testosterone 50 mg/5 gram (1 %) Place on the skin Active leucine/isoleuc ine/valine (NEOKE BCAA4 ORAL) Take by mouth Active Active Problems Problem Noted Date Diagnosed Date Varicose veins of both lower extremities 025 Assessment & Plan (06/28/2025 9:23 AM CDT): Impression: Patient denies any pain or significant edema to her lower extremities. Patient does utilize compression therapy intermittently. No varicose veins are noted on exam however reticular veins are noted throughout bilateral lower extremities. Discoloration or open ulcerations are noted. Plan: No surgical interventions indicated at this time. -continue utilizing compression therapy and leg elevation. 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 He is being monitored vascular surgery at [facility]. Plan: Continue Coumadin. -Continue recommendations as per vascular surgery [facility] Knee pain 01/03/2015 Encounters Date Type Department Care Team Description 08/15/2025 Orders Only [facility] Medicine Hematology [address] [place] [phone] Provider, MD Brianna 08/15/2025 Anticoagulation Visit [facility] Hematology [address] [place] [phone] Maribell Lombardo 07/24/2025 Anticoagulation Visit [facility] Hematology [address] [place] [phone] Maribell Lombardo 07/05/2025 10:30 AM CDT Office Visit [facility] Hematology [address] [place] [address] [address] [place] [address] Pauline Haro NP Mesenteric vein thrombosis (Primary Dx) 07/05/2025 9:15 AM CDT Lab [facility] at [address] [address] Mesenteric vein thrombosis 07/05/2025 Anticoagulation Visit [facility] Hematology [address] [place] [phone] Maribell Lombardo 06/28/2025 8:45 AM CDT Office Visit [facility] Vascular at [address] [place] [address] Sapphire Perez NP Varicose veins of both lower extremities with pain (Primary Dx); Mesenteric vein thrombosis 06/20/2025 Anticoagulation Visit [facility] Hematology [address] [place] [phone] Nohelia Marks, RN 06/08/2025 Anticoagulation Visit [facility] Hematology [address] [place] [phone] Nohelia Marks RN 05/31/2025 Anticoagulation Visit [facility] Hematology [address] [place] [phone] Nohelia Marks RN 05/26/2025 9:00 AM CDT Office Visit [facility] Orthopedics and Sports Medicine [address] [place] [phone] Lisa Hernandez NP Primary osteoarthritis of right knee, tricompartmental, mild/moderate patellofemoral; Primary osteoarthritis of left knee, mild tricompartmental; Varicose veins of both lower extremities with pain 05/23/2025 Anticoagulation Visit [facility] Hematology [address] [place] [phone] Nohelia Marks, RN from Last 3 Months Immunizations Immunization Administration Dates Next Due Pfizer SARS-CoV-2 Monovalent Vaccination (12+ Yrs) MARTIN-READY TO USE 03/03/2022 Surgical History Surgery Date Site/Laterality Comments HYSTERECTOMY BLADDER SURGERY Medical History Medical History Date Comments Osteoarthritis Osteoporosis Thyroid disease Kidney stone Hypercholesteremia Clotting disorder Primary osteoarthritis of knees, bilateral DDD (degenerative disc disease), cervical Anterolisthesis of cervical spine Thoracic kyphosis DDD (degenerative disc disease), thoracic Family History Medical History Relation Name Comments Alcohol abuse Other Arthritis Other Cancer Other Family history of malignant neoplasm - (Added by TW Conv) Relation Name Status Comments Other Social History Tobacco Use Types Packs/Day Years Used Date Smoking Tobacco: Never Smokeless Tobacco: Never Tobacco Cessation:Counseling Given: Not Answered Alcohol Use Standard Drinks/Week Comments Yes 0 [...] on file Legal Sex Female 2:56 AM FIRER 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 Gender Identity Not on file Sexual Orientation Not on file Last Filed Vital Signs Vital Sign Reading Time Taken Comments Blood Pressure 120/83 07/05/2025 10:26 AM CDT Pulse 68 07/05/2025 10:26 AM CDT Temperature 36.4 C (97.5 F) 07/05/2025 10:26 AM CDT Respiratory Rate 18 07/05/2025 10:26 AM CDT Oxygen Saturation 99% 07/05/2025 10:26 AM CDT Inhaled Oxygen Concentration - - Weight 98.7 kg (217 lb 9.5 oz) 07/05/2025 10:26 AM CDT Height 166 cm (5' 5.35) 07/05/2025 10:26 AM CDT Body Mass Index 35.82 07/05/2025 10:26 AM CDT Plan of Treatment Health Maintenance Due Date Last Done Comments Colon Cancer Screening-Colonoscopy 1950 Depression Screening 1950 Hepatitis C Screening 1950 Osteoporosis Screening-Bone Density Scan 1950 Hepatitis B Screening 01/17/1970 Zoster Vaccine (1 of 2) 01/17/1971 Breast Cancer Screening-Mammogram 02/15/2016 015 Well Visit 65+ 01/17/2017 Fall Risk Assessment 08/28/2022 08/28/2021 Covid-19 Vaccine ( season) 2025 03/03/2022, 12/18/2020, 11/20/2020 Influenza Vaccine (#1) 2025 07/17/2020, 2016 DTaP/Tdap/Td Vaccine (2 - Td or Tdap) 07/07/2028 Pneumococcal vaccine 65+ Completed 07/17/2020, 07/13 Procedures Procedure Name Priority Date/Time Associated Diagnosis Comments PROTIME-INR Routine 08/15/2025 9:20 AM FIRER LOCOMOTIVE PROTIME-INR Routine 08/11/2025 PROTIME-INR Routine 07/20/2025 EGFR Routine 07/05/2025 9:16 AM CDT Mesenteric vein thrombosis DIFFERENTIAL AUTO Routine 07/05/2025 9:1 6 AM CDT Mesenteric vein thrombosis PROTIME-INR Routine 07/05/2025 9:16 AM CDT Mesenteric vein thrombosis CBC WITH AUTO DIFFERENTIAL Routine 07/05/2025 9:16 AM CDT Mesenteric vein thrombosis COMPREHENSIVE METABOLIC PANEL Routine 07/05/2025 9:16 AM CDT Mesenteric vein thrombosis FERRITIN Routine 07/05/2025 9:16 AM CDT Mesenteric vein thrombosis RETICULOCYTES Routine 07/05/2025 9:16 AM CDT Mesenteric vein thrombosis IRON PROFILE W/ IBC Routine 07/05/2025 9 :16 AM CDT Mesenteric vein thrombosis PROTIME-INR Routine 06/20/2025 PROTIME-INR Routine 06/08/2025 PROTIME-INR Routine 05/31/2025 AZ ARTHROCENTESIS ASPIR&/INJ MAJOR JT/BURSA W/O US Routine 05/26/2025 9:00 AM CDT Primary osteoarthritis of right knee, tricompartmental, mild/moderate patellofemoral AZ ARTHROCENTESIS ASPIR&/INJ MAJOR JT/BURSA W/O US Routine 05/26/2025 9:00 AM CDT Primary osteoarthritis of left knee, mild tricompartmental PROTIME-INR Routine 05/23/2025 SCREENING MAMMOGRAM BILATERAL W GURU Routine 02/14/2015 8:12 AM CDT from Last 3 Months or Most Recently Relevant to Health Maintenance Results * Protime-INR (08/15/2025 9:20 AM FIRER LOCOMOTIVE) Blood Historical Provider MD LAB BLOOD ORDERABLES Maki l Result EXTERNAL LAB * (ABNORMAL) Protime-INR (08/11/2025) INR 2.90(A) 0.90 - 1.10 EXTERNAL LAB Blood [facility] Provider MD LAB BLOOD ORDERABLES Maki l Result EXTERNAL LAB * (ABNORMAL) Protime-INR (07/20/2025) INR 2.80(A) 0.90 - 1.10 EXTERNAL LAB Blood [facility] Provider MD LAB BLOOD ORDERABLES Maki l Result EXTERNAL LAB * (ABNORMAL) eGFR (07/05/2025 9:16 AM CDT) eGFR 59(L) >=60 mL/min/1. 73 m2 Comment: Interpretive Data Reference Interval Normal >/= 90 mL/min/1.73m2 Mildly decreased* 60 - 89 mL/min/1.73m2 Mildly to moderately decreased 45 - 59 mL/min/1.73m2 Moderately to severely decreased 30 - 44 mL/min/1.73m2 Severely decreased 15 - 29 mL/min/1.73m2 Kidney Failure < 15 mL/min/1.73m2 *Relative to young adult level Estimated glomerular filtration rate is determined by the 2020 CKD-EPI equation recommended by the National Kidney Foundation (A Unifying Approach to GFR Estimation: Recommendations of the NKF-ASK Task Force on Reassessing the Inclusion of Race in Diagnosing Kidney Disease, JASN 2020). The CKD-EPI equation should not be used for patients with unstable renal function and has not been validated in children and those over 70. Current interpretive data was last reviewed 2021. Testing performed by: [address] [address] Blood 07/05/2025 9:16 AM CDT 07/05/2025 9:22 AM CDT Adelita Capone NP LAB BLOOD ORDERABLES Final Result [facility] [address] [facility] Department [place] [address] * Differential, auto (07/05/2025 9:16 AM CDT) Neutrophil abs 4.19 1.50 - 6.50 K/cumm Comment:Testing performed by : [address] [address] Imm gran abs 0.02 0.00 - 0.10 K/cumm ZËO Comment:Testing performed by : [address] [address] Lymphocyte abs 2.19 0.80 - 3.30 K/cumm ZOË Comment:Testing performed by : [address] [address] Monocyte abs 0.54 0.20 - 0.80 K/cumm ZOË Comment:Testing performed by : [address] [address] Eosinophil abs 0.07 0.00 - 0.50 K/cumm ZOË Comment:Testing performed by : [address] [address] Basophil abs 0.04 0.00 - 0.10 K/cumm ZOË Comment:Testing performed by : [address] [address] Neutrophil pct 59.3 % ZOË Comment: Interpretive Data Percent cell count reference ranges are not reported, since discordance with absolute values may lead to misinterpretation of CBC data. Current Interpretive Data was last revised on 2018. Testing performed by: [address] [address] Imm gran pct 0.3 % [facility] Comment: Interpretive Data Percent cell count reference ranges are not reported, since discordance with absolute values may lead to misinterpretation of CBC data. Current Interpretive Data was last revised on 2018. Testing performed by: [address] [address] Lymphocyte pct 31.1 % [facility] Comment: Interpretive Data Percent cell count reference ranges are not reported, since discordance with absolute values may lead to misinterpretation of CBC data. Current Interpretive Data was last revised on 2018. Testing performed by: [address] [address] Monocyte pct 7.7 % [facility] Comment: Interpretive Data Percent cell count reference ranges are not reported, since discordance with absolute values may lead to misinterpretation of CBC data. Current Interpretive Data was last revised on 2018. Testing performed by: [address] [address] Eosinophil pct 1.0 % [facility] Comment: Interpretive Data Percent cell count reference ranges are not reported, since discordance with absolute values may lead to misinterpretation of CBC data. Current Interpretive Data was last revised on 2018. Testing performed by: [address] [address] Basophil pct 0.6 % [facility] Comment: Interpretive Data Percent cell count reference ranges are not reported, since discordance with absolute values may lead to misinterpretation of CBC data. Current Interpretive Data was last revised on 2018. Testing performed by: [address] [address] Blood 07/05/2025 9:16 AM CDT 07/05/2025 9:22 AM CDT us Adelita Capone NP LAB BLOOD ORDERABLES Final Result ZO[facility] [address] [facility] Department [place] [address] * Iron profile w/ IBC (07/05/2025 9:16 AM CDT) Iron 61 35 - 145 mcg/dL Comment:Testing performed by : [address] [address] TIBC 284 250 - 400 mcg/dL ZOË BLAKE Comment:Testing performed by : [address] [address] Transferrin saturation 21 20 - 50 % ZOË BLAKE Comment:Testing performed by : [address] [address] Blood 07/05/2025 9:16 AM CDT 07/05/2025 11:44 AM CDT Adelita Capone AUTO DESIGN CHECKER LAB BLOOD ORDERABLES Final Result Performing Organization Address City/State/[facility] Co de Phone Number ZOË [address] [facility] Department [place] [address] * CBC with auto differential (07/05/2025 9:16 AM CDT) WBC 7.05 3.80 - 9.90 K/cumm Comment:Testing performed by : [address] [address] Hgb 13.2 11.9 - 15.5 g/dL ZOË BLAKE Comment:Testing performed by : [address] [address] Hct 40.4 35.6 - 45.5 % ZOË BLAKE Comment:Testing performed by : [address] [address] Plt 230 150 - 400 K/cumm ZOË BLAKE Comment:Testing performed by : [address] [address] MPV 11.3 9.1 - 12.3 fL ZOË BLAKE Comment:Testing performed by : [address] [address] RBC 4.46 3.90 - 5.20 M/cumm ZOË BLAKE Comment:Testing performed by : [address] [address] MCV 90.6 81.3 - 96.4 fL ZOË Comment:Testing performed by : [address] [address] MCH 29.6 27.1 - 33.3 pg ZOË BLAKE Comment:Testing performed by : [address] [address] MCHC 32.7 32.3 - 35.7 g/dL ZOË Comment:Testing performed by : [address] [address] RDW CV 14.6 11.1 - 14.9 % ZOË Comment:Testing performed by : [address], [address] RDW SD 47.9 35.7 - 48.1 fL ZOË Comment:Testing performed by : [address] [address] NRBC abs 0.00 0.00 - 0.01 K/cumm ZOË Comment:Testing performed by : [address] [address] ANC Prelim 4.19 1.50 - 6.50 K/cumm ZOË Comment: Interpretive Data The rapid ANC is a preliminary automated count and may vary from the final ANC (Neut Abs) reported in the WBC differential that follows. Current interpretive data was last revised 2024. Testing performed by: [address] [address] Blood 07/05/2025 9:16 AM CDT 07/05/2025 9:22 AM CDT us Adelita Capone NP LAB BLOOD ORDERABLES Final Result ZO[facility] [address] [facility] Department [place] [address] * (ABNORMAL) Protime-INR (07/05/2025 9:16 AM CDT) PT 30.7(H) 12.0 - 14.6 sec Comment:Testing performed by : [address] [address] INR 3.0(H) 0.9 - 1.2 ZOË BLAKE Comment: Interpretive data Oral anticoagulant therapeutic ranges: Venous thromboembolism prophylaxis or treatment: 2.0-3.0 CARDIOLOGY Standard range: 2.0-3.0 High-intensity range: 2.5-3.5 Refer to indication-specific guidelines for appropriate target ranges for prosthetic heart valve replacement. Current interpretive data was last revised on 2019. Testing performed by: [address] [address] Blood 07/05/2025 9:16 AM CDT 07/05/2025 9:38 AM CDT Adelita Capone LAB BLOOD ORDERABLES Final Result Performing Organization Address [facility] de Phone Number ZOË [address] [place] [address] * Reticulocyte Count (07/05/2025 9:16 AM CDT) Retics, absolute 77 20 - 87 K/cumm Comment:Testing performed by : [address] [address] Retics 1.7 0.4 - 2.9 % ZOË Comment:Testing performed by : [address] [address] Reticulocyte Hgb 33.4 30.5 - 38.0 pg ZOË Comment:Testing performed by : [address] [address] Blood 07/05/2025 9:16 AM CDT 07/05/2025 9:22 AM CDT Adelita Capone NP LAB BLOOD ORDERABLES Final Result Performing Organization Address [facility] Co de Phone Number MARCELLA[address] [place] [address] * (ABNORMAL) Ferritin (07/05/2025 9:16 AM CDT) Ferritin 185(H) 13 - 150 ng/mL Comment:Testing performed by : [address] [address] Blood 07/05/2025 9:16 AM CDT 07/05/2025 11:44 AM CDT Adelita Capone AUTO DESIGN CHECKER LAB BLOOD ORDERABLES Final Result [facility] [address] [facility] Department [place] [address] * Comprehensive metabolic panel (07/05/2025 9:16 AM CDT) Pathologist [facility] Sodium 142 135 - 145 mmol/L Comment:Testing performed by : [address] [address] Potassium, pl 4.4 3.3 - 4.9 mmol/L ZOË Comment:Testing performed by : [address] [address] Chloride 107 97 - 110 mmol/L ZOË Comment:Testing performed by : [address] [address] CO2 22 22 - 32 mmol/L ZOË Comment:Testing performed by : [address] [address] Anion gap 13 2 - 15 mmol/L ZOË Comment:Testing performed by : [address] [address] BUN 17 6 - 25 mg/dL ZOË Comment:Testing performed by : [address] [address] Creatinine 1.00 0.60 - 1.10 mg/dL ZOË Comment:Testing performed by : [address] [address] Glucose 100 70 - 199 mg/dL ZOË Comment: Interpretive Data Fasting glucose >/= 126 mg/dl is diagnostic for diabetes. Fasting is defined as no caloric intake for at least 8 hours. Fasting glucose between 100 mg/dl to 125 mg/dl is diagnostic of prediabetes. In a patient with classic symptoms of hyperglycemia or hyperglycemic crisis, a random glucose >/= 200 mg/dl is diagnostic for diabetes. In the absence of unequivocal hyperglycemia, results should be confirmed by repeat testing. The classification and Diagnosis of Diabetes Diabetes Care 202; 46: S19-S40. Current interpretive data was last revised 2022. Testing performed by: [address], [address] Calcium 9.5 8.5 - 10.3 mg/dL ZOË Comment:Testing performed by : [address] [address] Bilirubin, total 0.6 0.1 - 1.2 mg/dL ZOË Comment:Testing performed by : [address] [address] Protein, pl 7.0 6.5 - 8.5 g/dL ZOË Comment:Testing performed by : [address] [address] Albumin 4.1 3.5 - 5.0 g/dL ZOË Comment:Testing performed by : [address] [address] Alk phos 87 40 - 130 Units/L ZOË Comment:Testing performed by : [address] [address] ALT 11 7 - 45 Units/L ZOË Comment:Testing performed by : [address] [address] AST 19 10 - 45 Units/L [facility] Comment:Testing performed by : [address] [address] Blood 07/05/2025 9:16 AM CDT 07/05/2025 9:22 AM CDT us Adelita Capone NP LAB BLOOD ORDERABLES Final Result [facility] [address] [facility] Department [place] [address] * (ABNORMAL) Protime-INR (06/20/2025) INR 2.00(A) 0.90 - 1.10 EXTERNAL LAB Blood Result [facility] Provider MD LAB BLOOD ORDERABLES Maki l Result EXTERNAL LAB * (ABNORMAL) Protime-INR (06/08/2025) INR 2.80(A) 0.90 - 1.10 EXTERNAL LAB Blood Result [facility] Provider MD LAB BLOOD ORDERABLES Maki l Result Performing Organization Address City/[facility]/ZIP Co de Phone Number EXTERNAL LAB * (ABNORMAL) Protime-INR (05/31/2025) INR 2.80(A) 0.90 - 1.10 EXTERNAL LAB Blood Result [facility] Provider MD LAB BLOOD ORDERABLES Maki l Result Performing Organization Address City/[facility]/ZIP Co de Phone Number EXTERNAL LAB * [place] ARTHROCENTESIS ASPIR&/INJ MAJOR JT/BURSA W/O US (05/26/2025 9:00 AM CDT) Narrative Lisa Hernandez NP - 05/26/2025 9:00 AM CDT Lisa Hernandez NP 05/26/2025 10:19 AM Large Joint (Hip, Knee, Shoulder) Injection: R knee Performed by: Lisa Hernandez NP Authorized by: Lisa Hernandez NP Large Joint Injection/Aspiration: Consent Given by: Patient Site marked: the procedure site was marked Timeout: prior to procedure the correct patient, procedure, and site was verified Verbal consent obtained: Yes Supporting Documentation: Indications: Pain Procedure Details: Location: Knee Site: R knee Prep: patient was prepped using a clean technique Needle Size: 22 G Approach: Medial Ultrasound guided: No Fluroscopic guidance: No Medications: 32 mg triamcinolone acetonide extended release 32 mg Patient tolerance: Patient tolerated the procedure well with no immediate complications us Lisa Hernandez AUTO DESIGN CHECKER IN CLINIC/BEDSIDE ORDERABLE S Final Result * [place] ARTHROCENTESIS ASPIR&/INJ MAJOR JT/BURSA W/O US (05/26/2025 9:00 AM CDT) Narrative Lisa Hernandez NP - 05/26/2025 9:00 AM CDT Lisa Hernandez NP 05/26/2025 10:19 AM Large Joint (Hip, Knee, Shoulder) Injection: L knee Performed by: Lisa Hernandez NP Authorized by: Lisa Hernandez NP Large Joint Injection/Aspiration: Consent Given by: Patient Site marked: the procedure site was marked Timeout: prior to procedure the correct patient, procedure, and site was verified Verbal consent obtained: Yes Supporting Documentation: Indications: Pain Procedure Details: Location: Knee Site: L knee Prep: patient was prepped using a clean technique Needle Size: 22 G Approach: Lateral Ultrasound guided: No Fluroscopic guidance: No Medications: 32 mg triamcinolone acetonide extended release 32 mg Patient tolerance: Patient tolerated the procedure well with no immediate complications us Lisa Hernandez AUTO DESIGN CHECKER IN CLINIC/BEDSIDE ORDERABLE S Final Result * (ABNORMAL) Protime-INR (05/23/2025) INR 4.00(A) 0.90 - 1.10 EXTERNAL LAB Blood us Historical Provider MD LAB BLOOD ORDERABLES Maki l Result EXTERNAL LAB * Screening Mammogram Bilateral W Guru (02/14/2015 8:12 AM CDT) Anatomical Region Laterality Modality Breast Bilateral Mammography 02/14/2015 8:12 AM CDT Impressions 02/14/2015 10:59 AM CDT BIRADS 1: NEGATIVE There is no mammographic evidence of malignancy. A 1 year screening mammogram is recommended. The patient has been or will be contacted. The patient will be entered into an automated reminder system to schedule a mammogram in one year. Electronically signed by: Dr. Michael Hsu nh/:02/14/2015 10:58:14 Sales Representative Door To Door: Bekah AguirreR)(M), [facility] letter sent: Normal Exam Reading location: BI-RADS: 1 Negative [EOD] Narrative 02/14/2015 10:59 AM CDT - [facility] BILAT SCREENING 3D W/CAD BILATERAL DIGITAL SCREENING MAMMOGRAM 3D/2D WITH CAD WITH MEDIOLATERAL OBLIQUE CRANIOCAUDAL: 02/14/2015 The study was acquired using full field digital technology and interpreted from soft copy. Current study was also evaluated with ICAD version 7.2. CLINICAL: Routine mammogram. Patient denies any problems today. Grandmother with breast cancer. No personal history of breast cancer. COMPARISONS: Comparison is made to exam dated: 08/30/[address] [facility]. BREAST TISSUE: The tissue of both breasts is heterogeneously dense, which may obscure small masses. FINDINGS: No significant masses, calcifications, or other findings are seen in either breast. There has been no significant interval change. Procedure Note Provider, MD Brianna - 02/27/2021 - [facility] BILAT SCREENING 3D W/CAD BILATERAL DIGITAL SCREENING MAMMOGRAM 3D/2D WITH CAD WITH MEDIOLATERALOBLIQUE CRANIOCAUDAL: 02/14/2015 The study was acquired using full field digital technology and interpretedfrom soft copy. Current study was also evaluated with ICAD version 7.2. CLINICAL: Routine mammogram. Patient denies any problems today.Grandmother with breast cancer. No personal history of breast cancer. COMPARISONS: Comparison is made to exam dated: 08/30/2011 [facility]. BREAST TISSUE: The tissue of both breasts is heterogeneously dense, whichmay obscure small masses. FINDINGS: No significant masses, calcifications, or other findings areseen in either breast. There has been no significant interval change. IMPRESSION: BIRADS 1: NEGATIVE There is no mammographic evidence of malignancy. A 1 year screeningmammogram is recommended. The patient has been or will be contacted. The patient will be entered into an automated reminder system to schedulea mammogram in one year. Electronically signed by: Dr. 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
--- OUTSIDE RECORDS SUMMARY | 2025-08-18 07:46 | XMS_ITS | Encounter Summary ---
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 Gender Identity Not on file Sexual Orientation Not on file documented as of this encounter Plan of Treatment Not on file documented as of this encounter Procedures Procedure Name Priority Date/Time Associated Diagnosis Comments SCAN - LABS 06/27/2024 documented in this encounter Results * SCAN - LABS (06/27/2024) us Provider Scanning Final Result documented in this encounter Visit Diagnoses Not on filedocumented in this encounter Additional Health Concerns Infection Onset Date Last Indicated Resolved Time 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
--- OUTSIDE RECORDS SUMMARY | 2025-08-18 07:46 | XMS_ITS | Encounter Summary ---
Author Organization [facility] Address [address] [place] [address] Phone Care Team Providers Care Vice President Of Software Development Name Role Phone Elaine Adams MD Primary Care Provider [phone] Nohelia Marks RN Unavailable Unavailable Encounter Details Date Type Department Care Team (Latest Contact Info) Description 09/15/2022 Orders Only [facility] Scanning, Provider Social History Tobacco Use Types Packs/Day Years Used Date Smoking Tobacco: Never Smokeless Tobacco: Never Alcohol Use Standard Drinks/Week Comments Yes 0 (1 standard drink = 0.6 oz pur e alcohol) Comments No Sex and Gender Information Value Date Recorded Sex Assigned at Not on file 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 Gender Identity Not on file Sexual Orientation Not on file documented as of this encounter Plan of Treatment Not on file documented as of this encounter Procedures Procedure Name Priority Date/Time Associated Diagnosis Comments SCAN - LABS 09/15/2022 documented in this encounter Results * SCAN - LABS (09/15/2022) us Provider Scanning Final Result documented in this encounter Visit Diagnoses Not on filedocumented in this encounter Additional Health Concerns Infection Onset Date Last Indicated Resolved Time 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
[2025-08-18 09:00] LABS: Hematocrit 40.5 % (37.0-47.0); Hemoglobin 12.9 g/dL (12.0-15.0); Immature Granulocyte Percent A 0.3 % (0-0.5); Lymphocytes Absolute Auto 2.36 K/mm3 (0.9-3.2); Mean Corpuscular HGB Conc 31.9 g/dl (32-36); Mean Corpuscular Hemoglobin 29.9 pg (26-34); Mean Corpuscular Volume 93.8 fl (80-100); Nucleated Red Blood Cells Absolute Auto 0.000 K/mm3 (0.0-0.012); Nucleated Red Blood Cells Perc 0.0 % (0.0-0.2); Platelet Count Result 231 k/mm3 (150-375); Red Blood Count 4.32 M/mm3 (4.2-5.4); White Blood Count 6.2 K/mm3 (4.5-10.0)
[2025-08-18 09:17] LABS: Alanine Aminotransferase 13 U/L (6-35); Albumin Level 4.4 g/dL (3.5-5.1); Alkaline Phosphatase 71 U/L (38-126); Anion Gap 10 mmol/L (4-12); Aspartate Amino Transferase 25 U/L (14-36); Bilirubin,Total 0.9 mg/dL (0.2-1.3); Blood Urea Nitrogen 19 mg/dL (7-17); Calcium 9.2 mg/dL (8.4-10.2); Carbon Dioxide 23 mmol/L (22-30); Chloride 106 mmol/L (98-107); Cholesterol 200 mg/dL (0-200); Estimated Glomerular Filt Rate 49; Glucose 84 mg/dL (65-110); HDL Direct 42 mg/dL; Potassium 3.8 mmol/L (3.4-5.0); Sodium 139 mmol/L (137-145); Total Protein 7.6 g/dL (6.3-8.2); Triglycerides 96 mg/dL (<150)
[2025-08-18 10:07] LABS: Hemoglobin A1C 5.6 % (<5.7)
[2025-08-18 10:13] LABS: Thyroid Stimulating Hormone Reflex 2.840 uIU/mL (0.465-4.68)
== END 2025-08-18 07:43 | disposition home or self-care (01) ==
LOC: ANHLAB 07:44
PROVIDERS: PCP Family Medicine Adolescent Medicine
DX: Z13.1 Encounter for screening for diabetes mellitus (principal); E78.2 Mixed hyperlipidemia; E05.90 Thyrotoxicosis, unspecified without thyrotoxic crisis or storm; R53.83 Other fatigue
CPT/HCPCS: 36415; 80053; 80061; 83036; 84443; 85025